=== PATIENT | female | born 1970 | race Hispanic/Latino ===

== ENCOUNTER 2020-02-20 10:57 | Inpatient (IN) | payer OTHER, SELFPAY ==
[~2020-02-20] VITALS: Ht 160 cm; Wt 91.4 kg
[2020-02-20 11:30] LABS: BASOPHILS % (AUTO) 0.1 % (0.0-5.0); HEMATOCRIT 40.6 % (36-48); LYMPHOCYTES % (AUTO) 9.4 % (21.0-51.0); MEAN CORPUSCULAR HEMOGLOBIN 29.9 pg (27.0-33.0); MEAN CORPUSCULAR HGB CONC 32.5 g/dL (32.0-36.0); MEAN CORPUSCULAR VOLUME 91.9 fL (79-99); MONOCYTES % (AUTO) 3.2 % (3.0-13.0); NEUTROPHILS % (AUTO) 86.3 % (40.0-77.0); PLATELET COUNT (AUTO) 246 K/uL (130-400); RED BLOOD CELL COUNT(AUTO) 4.42 MIL/uL (4.00-5.50); RED CELL DISTRIBUTION WIDTH 14.3 % (11.0-15.5); WHITE BLOOD COUNT (AUTO) 9.3 K/uL (4.8-10.8)
[2020-02-20 11:43] LABS: INR 0.89 (0.85-1.15); PARTIAL THROMBOPLASTIN TIME 33.1 SEC (26.3-35.5); PROTHROMBIN TIME 9.7 SEC (9.6-11.6)
[2020-02-20] MEDS ORDERED: ACETAMINOPHEN EXTRA STRENGTH 500 MG TABLET ONE (11:45)
[2020-02-20] MEDS ORDERED: ONDANSETRON HCL 4 MG/2 ML VIAL ONE (11:47)
[2020-02-20 11:55] LABS: CARBON DIOXIDE 31 mmol/L (21-32); CHLORIDE 98 mmol/L (101-111); GLOMERULAR FILTR. RATE CALC 63 mL/min (>60); GLUCOSE,RANDOM 186 mg/dL (70-105); SODIUM SERUM 136 mmol/L (136-145); UREA NITROGEN, BLOOD 12 mg/dL (7-18)
[2020-02-20 12:01] LABS: BILIRUBIN,URINE Small (NEGATIVE); COLOR,URINE Dark Yellow (YELLOW); GLUCOSE, URINE (UA) Negative (NEGATIVE); KETONES,URINE Trace mg/dL (NEGATIVE); LEUKOCYTE ESTERASE ,URINE Trace (NEGATIVE); NITRATE,URINE Negative (NEGATIVE); OCCULT BLOOD,URINE Small (NEGATIVE); PROTEIN,URINE >=1000 mg/dL (NEGATIVE)
[2020-02-20] MEDS ORDERED: AZITHROMYCIN 500MG+NS 250ML 250 ML IV ONE (12:03)
[2020-02-20] MEDS ORDERED: DEXAMETHASONE SOD PHOSPHATE 4 MG/ML 1ML VIAL ONE (12:03)
[2020-02-20] MEDS ORDERED: CEFTRIAXONE SODIUM 1 GM ONE (12:03)
[2020-02-20 12:06] LABS: ALANINE AMINOTRANSFERASE 46 U/L (12-78); ALBUMIN 2.6 g/dL (3.5-5.0); ASPARTATE AMINOTRANSFERASE 60 U/L (10-37); BILIRUBIN,TOTAL 0.4 mg/dL (0.2-1.0); CREATINE KINASE, TOTAL 304 U/L (21-232); MYOGLOBIN 86 ng/mL (10-92); TOTAL PROTEIN, SERUM 7.9 g/dL (6.0-8.3); TROPONIN I < 0.04 ng/mL (0.00-0.06)
[2020-02-20 12:08] LABS: APPEARANCE,URINE SLIGHTLY CLOUDY (CLEAR)
[2020-02-20 12:22] LABS: BACTERIA,URINE Few /HPF (None Seen); MUCUS,URINE Many LPF (None Seen); TRANSITIONAL EPI CELLS,URINE Few /HPF (None Seen)
[2020-02-20 12:29] LABS: RAPID GROUP A STREP NEGATIVE (NEGATIVE)
[2020-02-20 12:49] LABS: ABG HCO3 26.7 mmol/L (21.0-28.0); ABG OXYGEN SATURATION 96.1 % (95.0-99.0); ABG PCO2 47 mmHg (32-45)
[2020-02-20] MEDS: FUROSEMIDE 10 MG/ML 4ML VIAL IV SCH (15:00)
[2020-02-20] MEDS ORDERED: GLUCAGON 1MG KIT 1 MG ML IM PRN (15:00)
[2020-02-20] MEDS ORDERED: HYDRALAZINE HCL 20 MG/ML VIAL IV PRN (15:00)
[2020-02-20] MEDS ORDERED: DOXYCYCLINE 100MG+NS 250ML IV SCH (15:00)
[2020-02-20] MEDS ORDERED: MAG HYDROX/AL HYDROX/SIMETH ES 30 ML SUSP UDCUP PO PRN (15:00)
[2020-02-20] MEDS ORDERED: LACTULOSE 20 GM/30 ML UDCUP PO PRN (15:00)
[2020-02-20] MEDS ORDERED: GUAIFENESIN-DM 200/20 MG 10 ML PO PRN (15:00)
[2020-02-20] MEDS: CEFTRIAXONE SODIUM 1 GM IVP SCH (15:00)
[2020-02-20] MEDS ORDERED: ONDANSETRON HCL 4 MG/2 ML VIAL IV PRN (15:00)
[2020-02-20] MEDS ORDERED: ACETAMINOPHEN 325 MG TAB PO PRN (15:00)
[2020-02-20] MEDS ORDERED: ERGOCALCIFEROL (VITAMIN D2) 50,000 UNIT CAPSULE PO ONE (15:00)
[2020-02-20] MEDS ORDERED: DIPHENHYDRAMINE HCL 25 MG CAPSULE PO PRN (15:00)
[2020-02-20] MEDS ORDERED: DEXTROSE 50%-WATER 50 ML DISP.SYRIN IV PRN (15:00)
[2020-02-20] MEDS ORDERED: DiphenhydrAMINE HCL 50 MG/ML VIAL IV PRN (15:00)
[2020-02-20] MEDS ORDERED: NITROGLYCERIN 0.4 MG SL TAB SL PRN (15:00)
[2020-02-20] MEDS: DOXYCYCLINE 100MG+NS 250ML 250 ML IV SCH (16:00)
[2020-02-20 16:42] LABS: CRP QUANTITATIVE 248.9 mg/L (0.00-9.0)
[2020-02-20] MEDS ORDERED: DOXYCYCLINE 100MG+NS 250ML 250 ML IV ONE (17:23)
[2020-02-20] MEDS ORDERED: FUROSEMIDE 10 MG/ML 4ML VIAL ONE (17:24)
[2020-02-20] MEDS ORDERED: METHYLPREDNISOLONE SOD SUCC 125MG/2ML VIAL ONE (18:03)
[2020-02-20 20:00] VITALS: BP 159/61
--- NOTE | 2020-02-20 20:00 | NUR ---
ROUNDS RECEIVED PT ON BIPAP AT 90%. STILL VERY DYSPNEIC WITH RR=40. KEPT HOB ELEVATED. MAINTAINED ON BIPAP. WILL MONITOR CLOSELY. Addendum: 02/20/20 at 2309 by TRAM GANNON RN RN Amended: Links added.
[2020-02-20] MEDS ORDERED: BENZONATATE 100 MG CAPSULE PO ONE (20:05)
[2020-02-20] MEDS ORDERED: FAMOTIDINE/PF 20 MG/2 ML VIAL IV ONE (20:06)
[2020-02-20] MEDS: FAMOTIDINE 20MG TAB 20 MG TAB PO SCH (20:53)
[2020-02-20] MEDS: BENZONATATE 100 MG CAPSULE PO SCH (21:00)
[2020-02-20] MEDS: METHYLPREDNISOLONE SOD SUCC 125MG/2ML VIAL IVP SCH (21:00)
[2020-02-20] MEDS: ACETYLCYSTEINE 600 MG CAPSULE PO SCH (21:00)
[2020-02-20] MEDS: INSULIN HUMULIN R 100 UNIT/ML 3ML SQ SCH (21:00)
--- NOTE | 2020-02-20 21:00 | NUR ---
MEDS SHIFT ASSESSMENT DONE, PLEASE REFER TO CHART. DUE MEDS ADMINISTERED, TOLERATED WELL. DIAPER CHANGED. KEPT WARM AND DRY.WILL MONITOR PT. Addendum: 02/20/20 at 2346 by TRAM GANNON RN RN Amended: Links added.
[2020-02-20] MEDS ORDERED: ERGOCALCIFEROL (VITAMIN D2) 50,000 UNIT CAPSULE ONE (21:37)
--- NOTE | 2020-02-20 22:46 | NUR ---
PAGED CHELSEA MILLER INFORMS HEATER FURNACE THAT PCCU BED IS OPEN AND TO PAGE PRIMARY MD TO ASK TO UPGRADE PT TO PCCU STATUS PT IS NOT TOLERATING BIPAP. PAGED AJ, MEDICAL TECHNOLOGIST MICROBIOLOGY MANAGER PERSONNEL SELECTION FOR HOSPITALIST, VIA ANSWERING SERVICE. AWAITING CALL BACK.
--- NOTE | 2020-02-20 22:52 | NUR ---
CHIEF SCIENTIST CHIEF SCIENTIST AJ CALLED BACK AND REFERRED STATUS OF PT. NEW ORDER GIVEN, PLEASE REFER TO CPOE.
--- NOTE | 2020-02-20 23:35 | NUR ---
LACQUER SHADER MADE AWARE OF ROOM AVAILABILITY IN ROOM 403. CALLED TORI PICKETT TO HELP WITH BIPAP ON TRANSPORT. CALLED REPORT TO SONY YEN. PT MADE AWARE OF PENDING TRANSFER TO FLOOR. AWAITING TRANSPORT TO FLOOR.
[2020-02-20 23:55] VITALS: BP 152/82
--- NOTE | 2020-02-21 | NUR ---
TRANSFER PT TRANSFERRED TO ROOM 403. BEDSIDE REPORT UPDATE GIVEN TO SONY YEN.
--- NOTE | 2020-02-21 02:30 | NUR ---
PT DESATTING PT ON NONREBREATHER MASK 100%. PT STARTED TO DESAT. PLACE PT BACK ON HER BIPAP. WILL REEVAL IN 15 MIN
--- NOTE | 2020-02-21 02:45 | NUR ---
PT'S SATS UP TO 91% ON BIPAP. WILL CONT TO MONITOR PTS STATUS
[2020-02-21 03:52] VITALS: BP 146/81
[2020-02-21] MEDS: DOXYCYCLINE 100MG+NS 250ML 250 ML IV SCH ×2 (04:00→16:00)
[2020-02-21] MEDS: FUROSEMIDE 10 MG/ML 4ML VIAL IV SCH ×2 (04:17→17:54)
[2020-02-21] MEDS: CEFTRIAXONE SODIUM 1 GM IVP SCH ×2 (04:24→16:57)
[2020-02-21 05:52] LABS: BASOPHILS % (AUTO) 0.2 % (0.0-5.0); EOSINOPHILS % (AUTO) 0.2 % (0.0-8.0); HEMATOCRIT 44.8 % (36-48); LYMPHOCYTES % (AUTO) 7.9 % (21.0-51.0); MEAN CORPUSCULAR HEMOGLOBIN 30.3 pg (27.0-33.0); MEAN CORPUSCULAR HGB CONC 32.4 g/dL (32.0-36.0); MEAN CORPUSCULAR VOLUME 93.5 fL (79-99); MONOCYTES % (AUTO) 2.6 % (3.0-13.0); PLATELET COUNT (AUTO) 317 K/uL (130-400); RED BLOOD CELL COUNT(AUTO) 4.79 MIL/uL (4.00-5.50); RED CELL DISTRIBUTION WIDTH 14.6 % (11.0-15.5); WHITE BLOOD COUNT (AUTO) 11.6 K/uL (4.8-10.8)
[2020-02-21 06:05] LABS: ALBUMIN 2.5 g/dL (3.5-5.0); BILIRUBIN,TOTAL 0.3 mg/dL (0.2-1.0); CREATININE 1.1 mg/dL (0.5-1.5); POTASSIUM 4.6 mmol/L (3.5-5.1); TOTAL PROTEIN, SERUM 8.4 g/dL (6.0-8.3)
[2020-02-21 06:25] LABS: CRP QUANTITATIVE 282.5 mg/L (0.00-9.0)
[2020-02-21] MEDS: INSULIN HUMULIN R 100 UNIT/ML 3ML SQ SCH ×4 (06:41→21:12)
[2020-02-21 07:30] VITALS: BP 141/83
[2020-02-21] MEDS ORDERED: REMDESIVIR (INVESTIGATIONAL) 200 MG/250 ML NS IV SCH (08:30)
[2020-02-21] MEDS: METHYLPREDNISOLONE SOD SUCC 125MG/2ML VIAL IVP SCH ×3 (08:51→21:10)
[2020-02-21] MEDS: ACETYLCYSTEINE 600 MG CAPSULE PO SCH ×2 (08:51→21:09)
[2020-02-21] MEDS: ASCORBIC ACID 500 MG TAB PO SCH (08:51)
[2020-02-21] MEDS: ZINC SULFATE 220 CAPSULE PO SCH (08:51)
[2020-02-21] MEDS: BENZONATATE 100 MG CAPSULE PO SCH ×3 (08:51→21:10)
[2020-02-21] MEDS ORDERED: ENOXAPARIN SODIUM 1 MG/KG SQ SCH (09:00)
[2020-02-21] MEDS: FAMOTIDINE 20MG TAB 20 MG TAB PO SCH ×2 (09:00→21:00)
[2020-02-21] MEDS ORDERED: ENOXAPARIN SODIUM 40 MG/0.4 ML SYRINGE SQ SCH (09:00)
[2020-02-21] MEDS ORDERED: COLCHICINE 0.6 MG TABLET PO SCH (09:30)
[2020-02-21] MEDS ORDERED: SODIUM CHLORIDE 0.9% 250 ML IV ONE (10:00)
[2020-02-21] MEDS: ENOXAPARIN SODIUM 100 MG/1 ML SQ SCH ×2 (10:04→21:16)
[2020-02-21] MEDS: COLCHICINE 0.6 MG TABLET PO SCH (10:30)
[2020-02-21 11:47] VITALS: BP 160/85
[2020-02-21] MEDS ORDERED: REMDESIVIR (INVESTIGATIONAL) 100 MG in SODIUM CHLORIDE 0.9% 250 ML IV SCH (15:00)
[2020-02-21 15:30] VITALS: BP 162/83
[2020-02-21 19:40] VITALS: BP 147/89
[2020-02-21 23:53] VITALS: BP 148/71
[2020-02-22] MEDS: CEFTRIAXONE SODIUM 1 GM IVP SCH ×2 (03:04→18:25)
[2020-02-22 03:44] VITALS: BP 133/79
[2020-02-22 04:44] LABS: BASOPHILS % (AUTO) 0.2 % (0.0-5.0); EOSINOPHILS % (AUTO) 0.1 % (0.0-8.0); HEMATOCRIT 43.5 % (36-48); LYMPHOCYTES % (AUTO) 6.4 % (21.0-51.0); MEAN CORPUSCULAR HEMOGLOBIN 29.5 pg (27.0-33.0); MEAN CORPUSCULAR VOLUME 92.4 fL (79-99); MONOCYTES % (AUTO) 3.4 % (3.0-13.0); NEUTROPHILS % (AUTO) 88.8 % (40.0-77.0); PLATELET COUNT (AUTO) 354 K/uL (130-400); RED BLOOD CELL COUNT(AUTO) 4.71 MIL/uL (4.00-5.50); RED CELL DISTRIBUTION WIDTH 14.3 % (11.0-15.5); WHITE BLOOD COUNT (AUTO) 16.2 K/uL (4.8-10.8)
[2020-02-22 05:16] LABS: ALBUMIN 2.3 g/dL (3.5-5.0); BILIRUBIN,TOTAL 0.3 mg/dL (0.2-1.0); CREATININE 1.1 mg/dL (0.5-1.5); CRP QUANTITATIVE 141.3 mg/L (0.00-9.0); POTASSIUM 3.8 mmol/L (3.5-5.1)
[2020-02-22] MEDS ORDERED: FAMOTIDINE/PF 20 MG/2 ML VIAL IV ONE (07:20)
[2020-02-22 08:00] VITALS: BP 157/77
[2020-02-22] MEDS: ASCORBIC ACID 500 MG TAB PO SCH (08:10)
[2020-02-22] MEDS: METHYLPREDNISOLONE SOD SUCC 125MG/2ML VIAL IVP SCH ×3 (08:10→20:40)
[2020-02-22] MEDS: ZINC SULFATE 220 CAPSULE PO SCH (08:11)
[2020-02-22] MEDS: ACETYLCYSTEINE 600 MG CAPSULE PO SCH ×2 (08:11→20:40)
[2020-02-22] MEDS: BENZONATATE 100 MG CAPSULE PO SCH ×3 (08:11→20:41)
[2020-02-22] MEDS: DOXYCYCLINE 100MG+NS 250ML 250 ML IV SCH ×2 (09:00→20:40)
[2020-02-22] MEDS: REMDESIVIR (INVESTIGATIONAL) 100 MG/250ML NS IV SCH (09:00)
[2020-02-22] MEDS: FAMOTIDINE 20MG TAB 20 MG TAB PO SCH ×2 (09:00→20:41)
[2020-02-22] MEDS: ENOXAPARIN SODIUM 100 MG/1 ML SQ SCH ×2 (11:20→20:41)
[2020-02-22] MEDS: COLCHICINE 0.6 MG TABLET PO SCH (11:20)
[2020-02-22 11:30] VITALS: BP 186/86
--- NOTE | 2020-02-22 15:27 | NUR ---
INITIAL SW spoke to patient's spouse, Austyn Flood, [phone]. Patient has no home services or or DME. 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 Patient is able to complete ADL's independently and drives. PCP is MD at [facility]. Pharmacy is [facility]. DCP is home. Patient has no insurance or benefits. She is a [place] citizen and is presently working. Patient's spouse educated on [employer] $4 medication program and [employer] $5 medication program. Patient is being assisted by [employer] for financial matters. Addendum: 02/22/20 at 1530 by SHOAIB VELÁZQUEZ Amended: Links added.
[2020-02-22 15:30] VITALS: BP 180/79
[2020-02-22] MEDS: INSULIN HUMULIN R 100 UNIT/ML 3ML SQ SCH ×2 (16:30→20:42)
[2020-02-22 20:26] VITALS: BP 152/87
[2020-02-22 23:39] VITALS: BP 142/78
[2020-02-23 04:10] VITALS: BP 140/75
[2020-02-23] MEDS: CEFTRIAXONE SODIUM 1 GM IVP SCH ×2 (04:21→13:08)
[2020-02-23 05:48] LABS: BASOPHILS % (AUTO) 0.2 % (0.0-5.0); EOSINOPHILS % (AUTO) 0.2 % (0.0-8.0); HEMATOCRIT 43.5 % (36-48); LYMPHOCYTES % (AUTO) 5.5 % (21.0-51.0); MEAN CORPUSCULAR HEMOGLOBIN 30.1 pg (27.0-33.0); MEAN CORPUSCULAR VOLUME 94.2 fL (79-99); MONOCYTES % (AUTO) 3.8 % (3.0-13.0); NEUTROPHILS % (AUTO) 87.8 % (40.0-77.0); PLATELET COUNT (AUTO) 401 K/uL (130-400); RED BLOOD CELL COUNT(AUTO) 4.62 MIL/uL (4.00-5.50); RED CELL DISTRIBUTION WIDTH 14.2 % (11.0-15.5); WHITE BLOOD COUNT (AUTO) 16.8 K/uL (4.8-10.8)
[2020-02-23 06:08] LABS: ALBUMIN 2.3 g/dL (3.5-5.0); BILIRUBIN,TOTAL 0.4 mg/dL (0.2-1.0); CRP QUANTITATIVE 58.5 mg/L (0.00-9.0); POTASSIUM 3.4 mmol/L (3.5-5.1); TOTAL PROTEIN, SERUM 7.3 g/dL (6.0-8.3)
[2020-02-23] MEDS: INSULIN HUMULIN R 100 UNIT/ML 3ML SQ SCH ×4 (06:53→20:45)
[2020-02-23 08:00] VITALS: BP 167/84
--- NOTE | 2020-02-23 08:05 | NUR ---
ASSESSMENT PT IS RESTING IN BED PRONE POSITION. AAOX3 DENIES CP DENIES SOB WHILE AT REST AT THIS TIME, CURRENTLY ON HIGH FLOW O2. AM MEDS GIVEN, TOLERATED WELL. NO VISIBLE SIGNS OF DISTRESS NOTED AT THIS TIME. CALL LIGHT WITHIN REACH.
[2020-02-23] MEDS: FAMOTIDINE 20MG TAB 20 MG TAB PO SCH ×2 (08:47→20:53)
[2020-02-23] MEDS: COLCHICINE 0.6 MG TABLET PO SCH (08:47)
[2020-02-23] MEDS: ASCORBIC ACID 500 MG TAB PO SCH (08:47)
[2020-02-23] MEDS: ZINC SULFATE 220 CAPSULE PO SCH (08:47)
[2020-02-23] MEDS: BENZONATATE 100 MG CAPSULE PO SCH ×3 (08:47→20:47)
[2020-02-23] MEDS: ACETYLCYSTEINE 600 MG CAPSULE PO SCH ×2 (08:47→20:47)
[2020-02-23] MEDS: METHYLPREDNISOLONE SOD SUCC 125MG/2ML VIAL IVP SCH ×3 (08:47→20:48)
[2020-02-23] MEDS: ENOXAPARIN SODIUM 100 MG/1 ML SQ SCH ×2 (08:47→20:49)
[2020-02-23] MEDS: DOXYCYCLINE HYCLATE 100 MG TABLET PO SCH ×2 (09:18→20:47)
[2020-02-23] MEDS: REMDESIVIR (INVESTIGATIONAL) 100 MG/250ML NS IV SCH (09:18)
[2020-02-23 12:00] VITALS: BP 148/76
[2020-02-23] MEDS ORDERED: COMPOUND IV REFRIGERATED 1 EACH IVSOLN MISC PRN (12:00)
--- NOTE | 2020-02-23 12:00 | NUR ---
DR Ruthie GARCIA ROUNDED ORDERS RECEIVED
[2020-02-23 16:00] VITALS: BP 165/75
[2020-02-23 20:50] VITALS: BP 149/72
--- NOTE | 2020-02-23 23:17 | NUR ---
PLASMA STARTED AT THIS TIME. PLASMA VERIFIED AT BEDSIDE WITH SONY ECHEVERRIA.
--- NOTE | 2020-02-23 23:35 | NUR ---
SATURATIONS DROPPING TO 84-85% HIGH FLOW 15 LPM, 100% O2. RT PAGED. RT INCREASED O2 TO 16 LPM. REPORTS THAT IS THE HIGHEST IT WILL GO. PT CURRENTLY IN THE PRONE POSITION. SAT INCREASED TO 94%. WILL MAINTAIN PT IN THE PRONE POSITION AND CONTINUE TO MONITOR CLOSELY.
[2020-02-24 00:04] VITALS: BP 156/90
[2020-02-24] MEDS: CEFTRIAXONE SODIUM 1 GM IVP SCH ×2 (03:06→13:41)
[2020-02-24 03:58] VITALS: BP 152/83
[2020-02-24 05:00] LABS: BASOPHILS % (AUTO) 0.3 % (0.0-5.0); EOSINOPHILS % (AUTO) 0.7 % (0.0-8.0); HEMATOCRIT 38.7 % (36-48); LYMPHOCYTES % (AUTO) 6.1 % (21.0-51.0); MEAN CORPUSCULAR HEMOGLOBIN 29.7 pg (27.0-33.0); MEAN CORPUSCULAR HGB CONC 32.3 g/dL (32.0-36.0); MEAN CORPUSCULAR VOLUME 91.9 fL (79-99); MONOCYTES % (AUTO) 3.8 % (3.0-13.0); NEUTROPHILS % (AUTO) 85.4 % (40.0-77.0); PLATELET COUNT (AUTO) 385 K/uL (130-400); RED BLOOD CELL COUNT(AUTO) 4.21 MIL/uL (4.00-5.50); RED CELL DISTRIBUTION WIDTH 13.9 % (11.0-15.5); WHITE BLOOD COUNT (AUTO) 14.8 K/uL (4.8-10.8)
[2020-02-24 05:28] LABS: ALBUMIN 2.4 g/dL (3.5-5.0); BILIRUBIN,TOTAL 0.5 mg/dL (0.2-1.0); CREATININE 0.9 mg/dL (0.5-1.5); CRP QUANTITATIVE 30.3 mg/L (0.00-9.0); POTASSIUM 3.6 mmol/L (3.5-5.1); TOTAL PROTEIN, SERUM 7.1 g/dL (6.0-8.3)
[2020-02-24] MEDS: INSULIN HUMULIN R 100 UNIT/ML 3ML SQ SCH ×4 (07:10→20:29)
[2020-02-24 08:00] VITALS: BP 138/87
[2020-02-24] MEDS: DOXYCYCLINE HYCLATE 100 MG TABLET PO SCH ×2 (08:18→19:59)
[2020-02-24] MEDS: BENZONATATE 100 MG CAPSULE PO SCH ×3 (08:18→19:59)
[2020-02-24] MEDS: ASCORBIC ACID 500 MG TAB PO SCH (08:18)
[2020-02-24] MEDS: FAMOTIDINE 20MG TAB 20 MG TAB PO SCH ×2 (08:18→19:59)
[2020-02-24] MEDS: ACETYLCYSTEINE 600 MG CAPSULE PO SCH ×2 (08:18→19:59)
[2020-02-24] MEDS: REMDESIVIR (INVESTIGATIONAL) 100 MG/250ML NS IV SCH (08:18)
[2020-02-24] MEDS: METHYLPREDNISOLONE SOD SUCC 125MG/2ML VIAL IVP SCH ×3 (08:18→19:59)
[2020-02-24] MEDS: ZINC SULFATE 220 CAPSULE PO SCH (08:18)
[2020-02-24] MEDS: ENOXAPARIN SODIUM 100 MG/1 ML SQ SCH ×2 (08:18→20:01)
--- NOTE | 2020-02-24 08:30 | NUR ---
ASSESSMENT PT IS AAOX3. DENIES CP DENIES SOB AT REST, DENIES NV. LAYING PRONE INN BED, BREATHING PATTERN IS EVEN AND UNLABORED AT THIS TIME. NO VISIBLE SIGNS OF DISTRESS NOTED. STATES SHE FEELS BETTER TODAY THAN YESTERDAY AFTER RECEIVING CONV PLASMA. CURRENTLY ON O2 VIA HIGH FLOW. CALL LIGHT WITHIN REACH.
[2020-02-24] MEDS ORDERED: INSULIN GLARGINE 100 UNITS/ML 10 ML VIAL SQ ONE (09:00)
[2020-02-24] MEDS: COLCHICINE 0.6 MG TABLET PO SCH (09:30)
--- NOTE | 2020-02-24 11:30 | NUR ---
FAMILY NOTIFICATION AND UPDATE SPOKE TO NAHUM CUNHA. GIVEN PT STATUS UPDATE AND PLAN OF CARE . ALL QUESTIONS ANSWERED. GIVEN PASSWORD FOR CALLS I ALSO SPOKE TO HIM ON 02/23/20
--- NOTE | 2020-02-24 12:30 | NUR ---
STATUS REMAINS PRONE NO COMPLAINTS AT THIS TIME. CALL LIGHT WITHIN REACH. REMAINS ON HIGH FLOW.
[2020-02-24 16:00] VITALS: BP 114/57
[2020-02-24] MEDS: GUAIFENESIN-CODEINE 5 ML SYRUP PO PRN (19:59)
[2020-02-24 20:44] VITALS: BP 146/75
[2020-02-24 23:42] VITALS: BP 167/86
[2020-02-25] MEDS ORDERED: SODIUM CHLORIDE 0.9% 250 ML IV ONE (03:15)
[2020-02-25] MEDS: CEFTRIAXONE SODIUM 1 GM IVP SCH ×2 (03:39→14:34)
[2020-02-25 03:49] VITALS: BP 156/72
[2020-02-25] MEDS: INSULIN HUMULIN R 100 UNIT/ML 3ML SQ SCH ×4 (06:34→20:33)
[2020-02-25 06:58] LABS: BASOPHILS % (AUTO) 0.4 % (0.0-5.0); HEMATOCRIT 42.5 % (36-48); LYMPHOCYTES % (AUTO) 6.6 % (21.0-51.0); MEAN CORPUSCULAR HEMOGLOBIN 29.7 pg (27.0-33.0); MEAN CORPUSCULAR VOLUME 92.8 fL (79-99); MONOCYTES % (AUTO) 3.9 % (3.0-13.0); NEUTROPHILS % (AUTO) 83.3 % (40.0-77.0); PLATELET COUNT (AUTO) 449 K/uL (130-400); RED BLOOD CELL COUNT(AUTO) 4.58 MIL/uL (4.00-5.50); RED CELL DISTRIBUTION WIDTH 13.5 % (11.0-15.5); WHITE BLOOD COUNT (AUTO) 15.2 K/uL (4.8-10.8)
[2020-02-25 07:04] LABS: ALBUMIN 2.5 g/dL (3.5-5.0); BILIRUBIN,TOTAL 0.7 mg/dL (0.2-1.0); CREATININE 0.9 mg/dL (0.5-1.5); CRP QUANTITATIVE 19.1 mg/L (0.00-9.0); POTASSIUM 3.5 mmol/L (3.5-5.1); TOTAL PROTEIN, SERUM 7.1 g/dL (6.0-8.3)
[2020-02-25 08:00] VITALS: BP 154/84
[2020-02-25] MEDS: ZINC SULFATE 220 CAPSULE PO SCH (09:04)
[2020-02-25] MEDS: ACETYLCYSTEINE 600 MG CAPSULE PO SCH ×2 (09:04→20:21)
[2020-02-25] MEDS: METHYLPREDNISOLONE SOD SUCC 125MG/2ML VIAL IVP SCH ×3 (09:04→20:21)
[2020-02-25] MEDS: DOXYCYCLINE HYCLATE 100 MG TABLET PO SCH ×2 (09:04→20:21)
[2020-02-25] MEDS: BENZONATATE 100 MG CAPSULE PO SCH ×3 (09:04→20:21)
[2020-02-25] MEDS: ASCORBIC ACID 500 MG TAB PO SCH (09:04)
[2020-02-25] MEDS: FAMOTIDINE 20MG TAB 20 MG TAB PO SCH ×2 (09:04→20:21)
[2020-02-25] MEDS: COLCHICINE 0.6 MG TABLET PO SCH (09:04)
[2020-02-25] MEDS: ENOXAPARIN SODIUM 100 MG/1 ML SQ SCH ×2 (09:05→20:22)
[2020-02-25] MEDS: REMDESIVIR (INVESTIGATIONAL) 100 MG/250ML NS IV SCH (09:33)
[2020-02-25 12:00] VITALS: BP 150/83
[2020-02-25 16:00] VITALS: BP 154/82
[2020-02-25 20:00] VITALS: BP 139/78
[2020-02-25] MEDS: ZOLPIDEM TARTRATE 5 MG TAB PO PRN (20:21)
[2020-02-26] VITALS (7 sets, daily range): BP systolic 130–161; BP diastolic 74–86
[2020-02-26] MEDS: CEFTRIAXONE SODIUM 1 GM IVP SCH ×2 (03:29→14:25)
[2020-02-26 04:05] LABS: BASOPHILS % (AUTO) 0.3 % (0.0-5.0); HEMATOCRIT 40.8 % (36-48); LYMPHOCYTES % (AUTO) 6.8 % (21.0-51.0); MEAN CORPUSCULAR HEMOGLOBIN 29.9 pg (27.0-33.0); MEAN CORPUSCULAR HGB CONC 32.8 g/dL (32.0-36.0); MEAN CORPUSCULAR VOLUME 91.1 fL (79-99); MONOCYTES % (AUTO) 3.1 % (3.0-13.0); NEUTROPHILS % (AUTO) 82.6 % (40.0-77.0); PLATELET COUNT (AUTO) 445 K/uL (130-400); RED BLOOD CELL COUNT(AUTO) 4.48 MIL/uL (4.00-5.50); RED CELL DISTRIBUTION WIDTH 13.2 % (11.0-15.5); WHITE BLOOD COUNT (AUTO) 13.7 K/uL (4.8-10.8)
[2020-02-26 04:29] LABS: ALBUMIN 2.4 g/dL (3.5-5.0); BILIRUBIN,TOTAL 0.7 mg/dL (0.2-1.0); CREATININE 0.8 mg/dL (0.5-1.5); POTASSIUM 3.4 mmol/L (3.5-5.1); TOTAL PROTEIN, SERUM 6.5 g/dL (6.0-8.3)
[2020-02-26] MEDS: INSULIN HUMULIN R 100 UNIT/ML 3ML SQ SCH ×4 (06:11→20:22)
[2020-02-26] MEDS: COLCHICINE 0.6 MG TABLET PO SCH (08:35)
[2020-02-26] MEDS: METHYLPREDNISOLONE SOD SUCC 125MG/2ML VIAL IVP SCH ×3 (08:35→20:23)
[2020-02-26] MEDS: DOXYCYCLINE HYCLATE 100 MG TABLET PO SCH ×2 (08:35→20:23)
[2020-02-26] MEDS: FAMOTIDINE 20MG TAB 20 MG TAB PO SCH ×2 (08:35→20:23)
[2020-02-26] MEDS: ZINC SULFATE 220 CAPSULE PO SCH (08:35)
[2020-02-26] MEDS: BENZONATATE 100 MG CAPSULE PO SCH ×3 (08:35→20:23)
[2020-02-26] MEDS: ASCORBIC ACID 500 MG TAB PO SCH (08:35)
[2020-02-26] MEDS: ENOXAPARIN SODIUM 100 MG/1 ML SQ SCH (08:36)
[2020-02-26] MEDS: ACETYLCYSTEINE 600 MG CAPSULE PO SCH ×2 (08:38→20:23)
--- NOTE | 2020-02-26 12:22 | NUR ---
Family notification Spoke to Austyn Flood to give him an update of pt's condition also informed him pt was pending PT eval. All questions answered and concerns addressed. He was very appreciative of call
[2020-02-26] MEDS: ENOXAPARIN SODIUM 60 MG/0.6 ML SQ SCH (17:55)
[2020-02-26] MEDS: GUAIFENESIN-CODEINE 5 ML SYRUP PO PRN (20:23)
[2020-02-27] MEDS: CEFTRIAXONE SODIUM 1 GM IVP SCH (03:01)
[2020-02-27 04:00] VITALS: BP 141/82
[2020-02-27 04:34] LABS: BASOPHILS % (AUTO) 0.4 % (0.0-5.0); HEMATOCRIT 40.2 % (36-48); LYMPHOCYTES % (AUTO) 5.3 % (21.0-51.0); MEAN CORPUSCULAR HGB CONC 33.1 g/dL (32.0-36.0); MEAN CORPUSCULAR VOLUME 90.7 fL (79-99); MONOCYTES % (AUTO) 3.1 % (3.0-13.0); NEUTROPHILS % (AUTO) 86.1 % (40.0-77.0); PLATELET COUNT (AUTO) 444 K/uL (130-400); RED BLOOD CELL COUNT(AUTO) 4.43 MIL/uL (4.00-5.50); WHITE BLOOD COUNT (AUTO) 14.3 K/uL (4.8-10.8)
[2020-02-27 04:50] LABS: CREATININE 0.9 mg/dL (0.5-1.5); CRP QUANTITATIVE 16.5 mg/L (0.00-9.0); POTASSIUM 4.2 mmol/L (3.5-5.1)
[2020-02-27] MEDS: INSULIN HUMULIN R 100 UNIT/ML 3ML SQ SCH ×4 (05:33→21:09)
[2020-02-27 08:26] VITALS: BP 146/75
[2020-02-27] MEDS: BENZONATATE 100 MG CAPSULE PO SCH ×3 (08:43→21:09)
[2020-02-27] MEDS: ASCORBIC ACID 500 MG TAB PO SCH (08:44)
[2020-02-27] MEDS: FAMOTIDINE 20MG TAB 20 MG TAB PO SCH ×2 (08:44→21:09)
[2020-02-27] MEDS: DOXYCYCLINE HYCLATE 100 MG TABLET PO SCH ×2 (08:44→21:09)
[2020-02-27] MEDS: ZINC SULFATE 220 CAPSULE PO SCH (08:44)
[2020-02-27] MEDS: ACETYLCYSTEINE 600 MG CAPSULE PO SCH ×2 (08:44→21:08)
[2020-02-27] MEDS: METHYLPREDNISOLONE SOD SUCC 125MG/2ML VIAL IVP SCH ×3 (08:44→21:09)
[2020-02-27] MEDS: ENOXAPARIN SODIUM 60 MG/0.6 ML SQ SCH (08:45)
[2020-02-27] MEDS ORDERED: INSULIN GLARGINE 100 UNITS/ML 10 ML VIAL SQ SCH (09:00)
[2020-02-27 12:39] VITALS: BP 128/69
--- NOTE | 2020-02-27 12:46 | NUR ---
Family notification Spoke to Austyn Flood to update him on pt's condition. All questions were answered and all concerns addressed. He was very appreciative of call
[2020-02-27] MEDS ORDERED: INSULIN GLARGINE 100 UNITS/ML 10 ML VIAL SQ ONE (14:00)
[2020-02-27 15:47] VITALS: BP 115/75
--- NOTE | 2020-02-27 16:51 | NUR ---
Nutrition Note: RD consulted for education on diabetic diet. Unable to reach patient and in isolation. Intake is 75-100% of meals with good tolerance. alb 2.4, LBM 02/25. Recommend: continue with 75gm CCD, add no concentrated sweets to diet glucerna at lunch Lab draw of HgA1C Addendum: 02/27/20 at [address] Amended: Links added.
--- NOTE | 2020-02-27 17:06 | NUR ---
Nutrition Education: Patient unable to answer phone. Provided T2DM education material with nurse with contact information.
[2020-02-27 20:34] VITALS: BP 136/80
[2020-02-28] VITALS: BP 144/71
[2020-02-28] MEDS: ZOLPIDEM TARTRATE 5 MG TAB PO PRN ×2 (02:22→23:56)
[2020-02-28 03:42] VITALS: BP 133/74
[2020-02-28] MEDS: INSULIN HUMULIN R 100 UNIT/ML 3ML SQ SCH ×4 (06:19→21:27)
[2020-02-28 07:19] VITALS: BP 103/59
[2020-02-28 08:00] LABS: BASOPHILS % (AUTO) 0.4 % (0.0-5.0); HEMATOCRIT 38.6 % (36-48); LYMPHOCYTES % (AUTO) 4.7 % (21.0-51.0); MEAN CORPUSCULAR HEMOGLOBIN 29.9 pg (27.0-33.0); MEAN CORPUSCULAR HGB CONC 32.6 g/dL (32.0-36.0); MEAN CORPUSCULAR VOLUME 91.5 fL (79-99); MONOCYTES % (AUTO) 2.4 % (3.0-13.0); NEUTROPHILS % (AUTO) 87.2 % (40.0-77.0); PLATELET COUNT (AUTO) 411 K/uL (130-400); RED BLOOD CELL COUNT(AUTO) 4.22 MIL/uL (4.00-5.50); RED CELL DISTRIBUTION WIDTH 13.2 % (11.0-15.5)
[2020-02-28] MEDS: ASCORBIC ACID 500 MG TAB PO SCH (08:20)
[2020-02-28] MEDS: ACETYLCYSTEINE 600 MG CAPSULE PO SCH ×2 (08:21→21:23)
[2020-02-28] MEDS: FAMOTIDINE 20MG TAB 20 MG TAB PO SCH ×2 (08:21→21:23)
[2020-02-28] MEDS: METHYLPREDNISOLONE SOD SUCC 125MG/2ML VIAL IVP SCH ×3 (08:21→21:24)
[2020-02-28] MEDS: DOXYCYCLINE HYCLATE 100 MG TABLET PO SCH ×2 (08:21→21:23)
[2020-02-28] MEDS: ZINC SULFATE 220 CAPSULE PO SCH (08:21)
[2020-02-28] MEDS: ENOXAPARIN SODIUM 60 MG/0.6 ML SQ SCH (08:22)
[2020-02-28 08:52] LABS: CREATININE 0.9 mg/dL (0.5-1.5); POTASSIUM 4.7 mmol/L (3.5-5.1)
[2020-02-28] MEDS: BENZONATATE 100 MG CAPSULE PO SCH ×3 (08:55→21:23)
[2020-02-28] MEDS ORDERED: INSULIN GLARGINE 100 UNITS/ML 10 ML VIAL SQ SCH (10:30)
[2020-02-28] MEDS: ACETAMINOPHEN 325 MG TAB PO PRN ×2 (10:45→23:57)
[2020-02-28 11:34] VITALS: BP 107/67
[2020-02-28] MEDS ORDERED: INSULIN GLARGINE 100 UNITS/ML 10 ML VIAL SQ ONE (13:45)
[2020-02-28 16:30] VITALS: BP 116/64
[2020-02-28 20:00] VITALS: BP 141/85
[2020-02-29] VITALS: BP 131/74
[2020-02-29 04:00] VITALS: BP 113/72
[2020-02-29] MEDS: INSULIN HUMULIN R 100 UNIT/ML 3ML SQ SCH ×4 (06:40→21:12)
--- NOTE | 2020-02-29 06:45 | NUR ---
PATIENT COMPLIANT, ON PRONE POSITION THROUGHOUT SHIFT. O2 SATS DOWN TO 84%, BUT INCREASE UP TO 92%. WILL CONTINUE TO MONITOR.
[2020-02-29 07:38] LABS: BASOPHILS % (AUTO) 0.2 % (0.0-5.0); HEMATOCRIT 38.7 % (36-48); LYMPHOCYTES % (AUTO) 3.5 % (21.0-51.0); MEAN CORPUSCULAR HEMOGLOBIN 29.9 pg (27.0-33.0); MEAN CORPUSCULAR HGB CONC 32.8 g/dL (32.0-36.0); MEAN CORPUSCULAR VOLUME 91.1 fL (79-99); MONOCYTES % (AUTO) 1.6 % (3.0-13.0); NEUTROPHILS % (AUTO) 90.3 % (40.0-77.0); PLATELET COUNT (AUTO) 412 K/uL (130-400); RED BLOOD CELL COUNT(AUTO) 4.25 MIL/uL (4.00-5.50); RED CELL DISTRIBUTION WIDTH 13.1 % (11.0-15.5); WHITE BLOOD COUNT (AUTO) 13.1 K/uL (4.8-10.8)
[2020-02-29 08:09] LABS: CARBON DIOXIDE 32 mmol/L (21-32); CHLORIDE 100 mmol/L (101-111); CREATININE 0.8 mg/dL (0.5-1.5); GLOMERULAR FILTR. RATE CALC 81 mL/min (>60); GLUCOSE,RANDOM 327 mg/dL (70-105); LACTATE DEHYDROGENASE 495 U/L (81-234); POTASSIUM 4.8 mmol/L (3.5-5.1); SODIUM SERUM 134 mmol/L (136-145); UREA NITROGEN, BLOOD 26 mg/dL (7-18)
[2020-02-29] MEDS: ZINC SULFATE 220 CAPSULE PO SCH (08:09)
[2020-02-29] MEDS: FAMOTIDINE 20MG TAB 20 MG TAB PO SCH ×2 (08:09→20:21)
[2020-02-29] MEDS: METHYLPREDNISOLONE SOD SUCC 125MG/2ML VIAL IVP SCH ×3 (08:09→20:22)
[2020-02-29] MEDS: DOXYCYCLINE HYCLATE 100 MG TABLET PO SCH ×2 (08:09→20:21)
[2020-02-29] MEDS: ACETYLCYSTEINE 600 MG CAPSULE PO SCH ×2 (08:09→20:21)
[2020-02-29] MEDS: ENOXAPARIN SODIUM 60 MG/0.6 ML SQ SCH (08:09)
[2020-02-29] MEDS: ASCORBIC ACID 500 MG TAB PO SCH (08:09)
[2020-02-29] MEDS: BENZONATATE 100 MG CAPSULE PO SCH ×3 (08:13→20:21)
[2020-02-29 08:21] VITALS: BP 141/86
[2020-02-29 10:51] VITALS: BP 136/82
--- NOTE | 2020-02-29 11:18 | NUR ---
PATIENT ON PRONE POSITION , 02 SAT AT 88 TO 90 %. CONT ON OXYGEN
--- NOTE | 2020-02-29 13:05 | NUR ---
NOTIFIED TIMBO AND DAUGHTER ABIGAIL OF PATIENT STATUS AND PLAN FOR TRANSFER TO CRITICAL CARE UNIT . NOTIFIED [facility] [place] [place], AND FAXED ORDER TO ASSISTANT [employer] PUBLIC DEFENDER
[2020-02-29 13:52] LABS: ABG BASE EXCESS 1.3 mmol/L (-2.0-3.0); ABG HCO3 26.2 mmol/L (21.0-28.0); ABG PCO2 43 mmHg (32-45)
[2020-02-29] MEDS ORDERED: COLCHICINE 0.6 MG TABLET PO SCH (15:45)
[2020-02-29 17:05] VITALS: BP 125/72
[2020-02-29] MEDS: CEFEPIME HCL 2 GM VIAL IVP SCH (17:15)
[2020-02-29] MEDS: FUROSEMIDE 10 MG/ML 2ML VIAL IV SCH (17:17)
--- NOTE | 2020-02-29 18:00 | NUR ---
PATIENT CONT ON OXYGEN HIGH FLOW .O2 SAT AT 89 TO 93%. PATIENT CALM ,STATES FEELS A LITTLE BETTER . WILL CONT TO MONITOR
[2020-02-29] MEDS: COLCHICINE 0.6 MG TABLET PO SCH (20:22)
[2020-02-29] MEDS: INSULIN GLARGINE 100 UNITS/ML 10 ML VIAL SQ SCH (21:11)
[2020-02-29] MEDS: ZOLPIDEM TARTRATE 5 MG TAB PO PRN (21:25)
[2020-02-29 21:51] VITALS: BP 121/78
[2020-03-01] VITALS (7 sets, daily range): BP systolic 115–159; BP diastolic 59–96
[2020-03-01] MEDS: CEFEPIME HCL 2 GM VIAL IVP SCH ×2 (04:38→14:14)
[2020-03-01] MEDS: INSULIN HUMULIN R 100 UNIT/ML 3ML SQ SCH ×4 (06:58→20:42)
--- NOTE | 2020-03-01 07:00 | NUR ---
TONIGHT PATIENT APPEARED MORE COMFORTABLE THROUGHOUT SHIFT. 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
[2020-03-01 07:46] LABS: BASOPHILS % (AUTO) 0.2 % (0.0-5.0); HEMATOCRIT 41.2 % (36-48); LYMPHOCYTES % (AUTO) 3.8 % (21.0-51.0); MEAN CORPUSCULAR HEMOGLOBIN 30.4 pg (27.0-33.0); MEAN CORPUSCULAR HGB CONC 33.3 g/dL (32.0-36.0); MEAN CORPUSCULAR VOLUME 91.4 fL (79-99); MONOCYTES % (AUTO) 2.8 % (3.0-13.0); NEUTROPHILS % (AUTO) 87.7 % (40.0-77.0); PLATELET COUNT (AUTO) 430 K/uL (130-400); RED BLOOD CELL COUNT(AUTO) 4.51 MIL/uL (4.00-5.50); RED CELL DISTRIBUTION WIDTH 13.1 % (11.0-15.5); WHITE BLOOD COUNT (AUTO) 14.1 K/uL (4.8-10.8)
[2020-03-01] MEDS: METHYLPREDNISOLONE SOD SUCC 125MG/2ML VIAL IVP SCH ×3 (08:25→20:38)
[2020-03-01] MEDS: DOXYCYCLINE HYCLATE 100 MG TABLET PO SCH ×2 (08:26→20:39)
[2020-03-01] MEDS: ZINC SULFATE 220 CAPSULE PO SCH (08:26)
[2020-03-01] MEDS: FAMOTIDINE 20MG TAB 20 MG TAB PO SCH ×2 (08:26→20:39)
[2020-03-01] MEDS: COLCHICINE 0.6 MG TABLET PO SCH ×2 (08:26→20:39)
[2020-03-01] MEDS: ASCORBIC ACID 500 MG TAB PO SCH (08:26)
[2020-03-01] MEDS: ENOXAPARIN SODIUM 60 MG/0.6 ML SQ SCH (08:26)
[2020-03-01] MEDS: BENZONATATE 100 MG CAPSULE PO SCH ×3 (08:26→20:39)
[2020-03-01] MEDS: ACETYLCYSTEINE 600 MG CAPSULE PO SCH ×2 (08:27→20:39)
[2020-03-01 08:45] LABS: CARBON DIOXIDE 32 mmol/L (21-32); CHLORIDE 95 mmol/L (101-111); GLOMERULAR FILTR. RATE CALC 63 mL/min (>60); GLUCOSE,RANDOM 344 mg/dL (70-105); LACTATE DEHYDROGENASE 533 U/L (81-234); POTASSIUM 5.6 mmol/L (3.5-5.1); SODIUM SERUM 134 mmol/L (136-145); UREA NITROGEN, BLOOD 34 mg/dL (7-18)
[2020-03-01] MEDS ORDERED: SODIUM POLYSTYRENE SULFONATE 15 GM/60 ML ML PO SCH (09:00)
[2020-03-01] MEDS: FUROSEMIDE 10 MG/ML 2ML VIAL IV SCH (16:52)
[2020-03-01] MEDS: INSULIN GLARGINE 100 UNITS/ML 10 ML VIAL SQ SCH (20:41)
[2020-03-02] MEDS: CEFEPIME HCL 2 GM VIAL IVP SCH ×2 (03:49→15:23)
[2020-03-02 04:38] VITALS: BP 134/77
[2020-03-02 06:27] LABS: BASOPHILS % (AUTO) 0.2 % (0.0-5.0); LYMPHOCYTES % (AUTO) 3.1 % (21.0-51.0); MEAN CORPUSCULAR HGB CONC 32.7 g/dL (32.0-36.0); MEAN CORPUSCULAR VOLUME 91.9 fL (79-99); MONOCYTES % (AUTO) 1.9 % (3.0-13.0); NEUTROPHILS % (AUTO) 91.6 % (40.0-77.0); PLATELET COUNT (AUTO) 334 K/uL (130-400); RED BLOOD CELL COUNT(AUTO) 4.46 MIL/uL (4.00-5.50); RED CELL DISTRIBUTION WIDTH 13.2 % (11.0-15.5); WHITE BLOOD COUNT (AUTO) 12.1 K/uL (4.8-10.8)
[2020-03-02 07:08] LABS: CARBON DIOXIDE 28 mmol/L (21-32); CHLORIDE 98 mmol/L (101-111); GLOMERULAR FILTR. RATE CALC 63 mL/min (>60); LACTATE DEHYDROGENASE 426 U/L (81-234); POTASSIUM 4.8 mmol/L (3.5-5.1); SODIUM SERUM 131 mmol/L (136-145); UREA NITROGEN, BLOOD 35 mg/dL (7-18)
[2020-03-02 07:27] LABS: GLUCOSE,RANDOM 422 mg/dL (70-105)
[2020-03-02 08:00] VITALS: BP 126/86
[2020-03-02] MEDS: ASCORBIC ACID 500 MG TAB PO SCH (08:14)
[2020-03-02] MEDS: FAMOTIDINE 20MG TAB 20 MG TAB PO SCH ×2 (08:14→21:14)
[2020-03-02] MEDS: ACETYLCYSTEINE 600 MG CAPSULE PO SCH ×2 (08:14→21:14)
[2020-03-02] MEDS: METHYLPREDNISOLONE SOD SUCC 125MG/2ML VIAL IVP SCH ×3 (08:14→21:13)
[2020-03-02] MEDS: ZINC SULFATE 220 CAPSULE PO SCH (08:15)
[2020-03-02] MEDS: COLCHICINE 0.6 MG TABLET PO SCH ×2 (08:15→21:13)
[2020-03-02] MEDS: DOXYCYCLINE HYCLATE 100 MG TABLET PO SCH ×2 (08:15→21:13)
[2020-03-02] MEDS: ENOXAPARIN SODIUM 60 MG/0.6 ML SQ SCH (08:15)
[2020-03-02] MEDS: BENZONATATE 100 MG CAPSULE PO SCH ×3 (08:15→21:14)
[2020-03-02] MEDS: INSULIN HUMULIN R 100 UNIT/ML 3ML SQ SCH ×4 (08:18→21:16)
[2020-03-02] MEDS: INSULIN GLARGINE 100 UNITS/ML 10 ML VIAL SQ SCH ×2 (09:00→21:15)
[2020-03-02 09:03] LABS: HEMOGLOBIN A1C 8.8 % (4.0-6.0)
[2020-03-02 11:23] VITALS: BP 116/75
[2020-03-02] MEDS: FUROSEMIDE 10 MG/ML 2ML VIAL IV SCH (15:24)
[2020-03-02 16:00] VITALS: BP 120/77
[2020-03-02 20:00] VITALS: BP 113/61
[2020-03-02 23:49] VITALS: BP 138/64
[2020-03-03 03:33] VITALS: BP 133/72
[2020-03-03] MEDS: CEFEPIME HCL 2 GM VIAL IVP SCH ×2 (04:22→15:38)
[2020-03-03 04:49] LABS: BASOPHILS % (AUTO) 0.2 % (0.0-5.0); HEMATOCRIT 42.9 % (36-48); LYMPHOCYTES % (AUTO) 2.9 % (21.0-51.0); MEAN CORPUSCULAR HEMOGLOBIN 29.9 pg (27.0-33.0); MEAN CORPUSCULAR HGB CONC 33.3 g/dL (32.0-36.0); MEAN CORPUSCULAR VOLUME 89.6 fL (79-99); MONOCYTES % (AUTO) 2.3 % (3.0-13.0); NEUTROPHILS % (AUTO) 92.5 % (40.0-77.0); PLATELET COUNT (AUTO) 364 K/uL (130-400); RED BLOOD CELL COUNT(AUTO) 4.79 MIL/uL (4.00-5.50); RED CELL DISTRIBUTION WIDTH 13.2 % (11.0-15.5); WHITE BLOOD COUNT (AUTO) 13.2 K/uL (4.8-10.8)
[2020-03-03 05:08] LABS: ALANINE AMINOTRANSFERASE 81 U/L (12-78); ALBUMIN 2.7 g/dL (3.5-5.0); ASPARTATE AMINOTRANSFERASE 31 U/L (10-37); BILIRUBIN,TOTAL 0.8 mg/dL (0.2-1.0); CARBON DIOXIDE 27 mmol/L (21-32); CHLORIDE 94 mmol/L (101-111); CREATININE 0.9 mg/dL (0.5-1.5); GLOMERULAR FILTR. RATE CALC 71 mL/min (>60); GLUCOSE,RANDOM 350 mg/dL (70-105); LACTATE DEHYDROGENASE 351 U/L (81-234); POTASSIUM 4.7 mmol/L (3.5-5.1); SODIUM SERUM 130 mmol/L (136-145); TOTAL PROTEIN, SERUM 7.1 g/dL (6.0-8.3); UREA NITROGEN, BLOOD 44 mg/dL (7-18)
[2020-03-03 05:12] LABS: CRP QUANTITATIVE < 2.00 mg/L (0.00-9.0)
[2020-03-03] MEDS: INSULIN HUMULIN R 100 UNIT/ML 3ML SQ SCH ×4 (06:51→21:09)
[2020-03-03 08:00] VITALS: BP 104/62
[2020-03-03] MEDS: METHYLPREDNISOLONE SOD SUCC 125MG/2ML VIAL IVP SCH ×3 (09:47→21:06)
[2020-03-03] MEDS: ACETYLCYSTEINE 600 MG CAPSULE PO SCH ×2 (09:48→21:06)
[2020-03-03] MEDS: FAMOTIDINE 20MG TAB 20 MG TAB PO SCH ×2 (09:48→21:06)
[2020-03-03] MEDS: ASCORBIC ACID 500 MG TAB PO SCH (09:48)
[2020-03-03] MEDS: ZINC SULFATE 220 CAPSULE PO SCH (09:49)
[2020-03-03] MEDS: ENOXAPARIN SODIUM 60 MG/0.6 ML SQ SCH (09:49)
[2020-03-03] MEDS: DOXYCYCLINE HYCLATE 100 MG TABLET PO SCH ×2 (09:49→21:06)
[2020-03-03] MEDS: BENZONATATE 100 MG CAPSULE PO SCH ×3 (09:49→21:06)
[2020-03-03] MEDS: COLCHICINE 0.6 MG TABLET PO SCH ×2 (09:49→21:06)
[2020-03-03] MEDS: INSULIN GLARGINE 100 UNITS/ML 10 ML VIAL SQ SCH ×2 (10:02→21:09)
[2020-03-03 12:00] VITALS: BP 117/71
[2020-03-03] MEDS: FUROSEMIDE 10 MG/ML 2ML VIAL IV SCH (15:38)
[2020-03-03 17:01] VITALS: BP 110/67
[2020-03-03 19:35] VITALS: BP 118/63
[2020-03-03 23:59] VITALS: BP 114/68
[2020-03-04] MEDS: CEFEPIME HCL 2 GM VIAL IVP SCH ×2 (03:31→15:56)
[2020-03-04 03:40] VITALS: BP 118/64
[2020-03-04] MEDS: INSULIN HUMULIN R 100 UNIT/ML 3ML SQ SCH ×6 (05:40→20:29)
[2020-03-04 06:00] LABS: ALANINE AMINOTRANSFERASE 120 U/L (12-78); ALBUMIN 2.9 g/dL (3.5-5.0); ASPARTATE AMINOTRANSFERASE 32 U/L (10-37); BILIRUBIN,TOTAL 0.9 mg/dL (0.2-1.0); CARBON DIOXIDE 24 mmol/L (21-32); CHLORIDE 93 mmol/L (101-111); CREATININE 1.1 mg/dL (0.5-1.5); GLOMERULAR FILTR. RATE CALC 56 mL/min (>60); GLUCOSE,RANDOM 398 mg/dL (70-105); LACTATE DEHYDROGENASE 339 U/L (81-234); POTASSIUM 4.9 mmol/L (3.5-5.1); SODIUM SERUM 128 mmol/L (136-145); TOTAL PROTEIN, SERUM 7.5 g/dL (6.0-8.3); UREA NITROGEN, BLOOD 55 mg/dL (7-18)
[2020-03-04] MEDS ORDERED: INSULIN HUMULIN R 100 UNIT/ML 3ML SQ SCH (07:30)
[2020-03-04 07:38] LABS: BASOPHILS % (AUTO) 0.2 % (0.0-5.0); HEMATOCRIT 47.5 % (36-48); LYMPHOCYTES % (AUTO) 3.8 % (21.0-51.0); MEAN CORPUSCULAR HEMOGLOBIN 30.3 pg (27.0-33.0); MEAN CORPUSCULAR HGB CONC 33.3 g/dL (32.0-36.0); MONOCYTES % (AUTO) 3.8 % (3.0-13.0); NEUTROPHILS % (AUTO) 90.6 % (40.0-77.0); PLATELET COUNT (AUTO) 436 K/uL (130-400); RED BLOOD CELL COUNT(AUTO) 5.22 MIL/uL (4.00-5.50); RED CELL DISTRIBUTION WIDTH 13.4 % (11.0-15.5); WHITE BLOOD COUNT (AUTO) 12.8 K/uL (4.8-10.8)
[2020-03-04 07:58] LABS: CRP QUANTITATIVE < 2.00 mg/L (0.00-9.0)
[2020-03-04 08:41] VITALS: BP 131/82
[2020-03-04] MEDS: FAMOTIDINE 20MG TAB 20 MG TAB PO SCH ×2 (09:52→20:21)
[2020-03-04] MEDS: ACETYLCYSTEINE 600 MG CAPSULE PO SCH ×2 (09:52→20:21)
[2020-03-04] MEDS: ASCORBIC ACID 500 MG TAB PO SCH (09:52)
[2020-03-04] MEDS: BENZONATATE 100 MG CAPSULE PO SCH ×3 (09:52→20:28)
[2020-03-04] MEDS: ZINC SULFATE 220 CAPSULE PO SCH (09:53)
[2020-03-04] MEDS: METHYLPREDNISOLONE SOD SUCC 125MG/2ML VIAL IVP SCH ×3 (09:53→20:19)
[2020-03-04] MEDS: COLCHICINE 0.6 MG TABLET PO SCH ×2 (09:53→20:20)
[2020-03-04] MEDS: ENOXAPARIN SODIUM 60 MG/0.6 ML SQ SCH (09:53)
[2020-03-04 12:07] VITALS: BP 115/72
[2020-03-04] MEDS: FUROSEMIDE 10 MG/ML 2ML VIAL IV SCH (15:56)
[2020-03-04] MEDS ORDERED: INSULIN NPH 100 UNIT/ML 3ML SQ SCH (16:30)
[2020-03-04 16:57] VITALS: BP 123/75
[2020-03-04 19:45] VITALS: BP 166/66
[2020-03-04 23:54] VITALS: BP 103/60
[2020-03-05] MEDS: CEFEPIME HCL 2 GM VIAL IVP SCH ×2 (03:07→16:35)
[2020-03-05 03:45] VITALS: BP 134/76
--- NOTE | 2020-03-05 05:19 | NUR ---
UPDATE pATIENT RESPOSITIONED FROM PRONE TO SUPINE WITH C/O BURNING AND FEELING LIKE NEEDING TO "BURP". PATIENT DENIES CHEST PAIN. PATIENT STATES IT FEELS MORE "GASSY" AND MOVING. PATIENT ALSO STATES SHE IS HUNGRY. SNACKS PROVIDED.
[2020-03-05 06:18] LABS: BASOPHILS % (AUTO) 0.2 % (0.0-5.0); HEMATOCRIT 46.7 % (36-48); LYMPHOCYTES % (AUTO) 3.4 % (21.0-51.0); MONOCYTES % (AUTO) 3.5 % (3.0-13.0); NEUTROPHILS % (AUTO) 91.5 % (40.0-77.0); PLATELET COUNT (AUTO) 387 K/uL (130-400); RED BLOOD CELL COUNT(AUTO) 5.13 MIL/uL (4.00-5.50); RED CELL DISTRIBUTION WIDTH 13.5 % (11.0-15.5); WHITE BLOOD COUNT (AUTO) 14.6 K/uL (4.8-10.8)
[2020-03-05 06:42] LABS: BILIRUBIN,TOTAL 0.9 mg/dL (0.2-1.0); CREATININE 1.1 mg/dL (0.5-1.5); CRP QUANTITATIVE 0.2 mg/L (0.00-9.0); POTASSIUM 4.7 mmol/L (3.5-5.1); TOTAL PROTEIN, SERUM 7.3 g/dL (6.0-8.3)
[2020-03-05] MEDS ORDERED: INSULIN NPH 100 UNIT/ML 3ML SQ SCH (07:30)
[2020-03-05] MEDS: ASCORBIC ACID 500 MG TAB PO SCH (08:47)
[2020-03-05] MEDS: ZINC SULFATE 220 CAPSULE PO SCH (08:48)
[2020-03-05] MEDS: ACETYLCYSTEINE 600 MG CAPSULE PO SCH ×2 (08:48→19:37)
[2020-03-05] MEDS: COLCHICINE 0.6 MG TABLET PO SCH ×2 (08:48→19:37)
[2020-03-05] MEDS: METHYLPREDNISOLONE SOD SUCC 125MG/2ML VIAL IVP SCH ×3 (08:48→19:37)
[2020-03-05] MEDS: FAMOTIDINE 20MG TAB 20 MG TAB PO SCH ×2 (08:48→19:37)
[2020-03-05] MEDS: BENZONATATE 100 MG CAPSULE PO SCH ×3 (08:48→19:37)
[2020-03-05] MEDS: INSULIN NPH 100 UNIT/ML 3ML SQ SCH ×2 (08:52→16:38)
[2020-03-05] MEDS: INSULIN HUMULIN R 100 UNIT/ML 3ML SQ SCH ×7 (08:53→20:13)
[2020-03-05] MEDS: ENOXAPARIN SODIUM 60 MG/0.6 ML SQ SCH (08:54)
[2020-03-05 12:00] VITALS: BP 114/78
[2020-03-05 16:00] VITALS: BP 139/79
[2020-03-05] MEDS: FUROSEMIDE 10 MG/ML 2ML VIAL IV SCH (16:36)
[2020-03-05 19:35] VITALS: BP 137/83
--- NOTE | 2020-03-05 20:21 | NUR ---
POSITIONING PATIENT REPOSITIONED TO PRONE. PATIENT STATED WHEN SHE LAYS ON HER LEFT SIDE SHE EXPERIENCES HEART BURN.
[2020-03-05 23:28] VITALS: BP 123/79
[2020-03-06] MEDS: CEFEPIME HCL 2 GM VIAL IVP SCH ×2 (02:54→16:02)
[2020-03-06 03:45] VITALS: BP 123/79
[2020-03-06] MEDS: INSULIN HUMULIN R 100 UNIT/ML 3ML SQ SCH ×7 (05:59→21:08)
--- NOTE | 2020-03-06 06:24 | NUR ---
JUAREZ UNABLE TO OBTAIN FROM PHARMACY. Addendum: 03/06/20 at 0625 by LUPE RODRIGUEZ RN RN ENTERED ON WRONG PATIENT
--- NOTE | 2020-03-06 06:25 | NUR ---
END OF SHIFT PATIENTS VSS. PATIENT PRONED FROM 2020 TO ABOUT 0500. PATIENT ABLE TO SELF TURN. INCREASED URINE OUTPUT POST LASIX IV. PATIENT TOLERATING PO FLUIDS. WILL CONTINUE TO MONITOR.
[2020-03-06 07:30] VITALS: BP 123/75
[2020-03-06] MEDS: METHYLPREDNISOLONE SOD SUCC 125MG/2ML VIAL IVP SCH ×3 (09:02→20:03)
[2020-03-06] MEDS: ACETYLCYSTEINE 600 MG CAPSULE PO SCH ×2 (09:03→20:03)
[2020-03-06] MEDS: FAMOTIDINE 20MG TAB 20 MG TAB PO SCH ×2 (09:03→20:03)
[2020-03-06] MEDS: ASCORBIC ACID 500 MG TAB PO SCH (09:03)
[2020-03-06] MEDS: BENZONATATE 100 MG CAPSULE PO SCH ×3 (09:03→20:04)
[2020-03-06] MEDS: COLCHICINE 0.6 MG TABLET PO SCH ×2 (09:03→20:05)
[2020-03-06] MEDS: ZINC SULFATE 220 CAPSULE PO SCH (09:03)
[2020-03-06] MEDS: ENOXAPARIN SODIUM 60 MG/0.6 ML SQ SCH (09:04)
[2020-03-06] MEDS: INSULIN NPH 100 UNIT/ML 3ML SQ SCH ×2 (09:11→16:10)
[2020-03-06 11:22] VITALS: BP 111/76
[2020-03-06 15:57] VITALS: BP 99/75
[2020-03-06 20:23] VITALS: BP 139/97
[2020-03-06 23:41] VITALS: BP 113/73
[2020-03-07] MEDS: CEFEPIME HCL 2 GM VIAL IVP SCH ×2 (02:48→14:58)
[2020-03-07 03:46] VITALS: BP 137/75
[2020-03-07] MEDS: INSULIN NPH 100 UNIT/ML 3ML SQ SCH ×2 (06:17→17:00)
[2020-03-07] MEDS: INSULIN HUMULIN R 100 UNIT/ML 3ML SQ SCH ×8 (07:30→20:46)
[2020-03-07] MEDS: ZINC SULFATE 220 CAPSULE PO SCH (08:10)
[2020-03-07] MEDS: FAMOTIDINE 20MG TAB 20 MG TAB PO SCH ×2 (08:10→20:45)
[2020-03-07] MEDS: ASCORBIC ACID 500 MG TAB PO SCH (08:10)
[2020-03-07] MEDS: BENZONATATE 100 MG CAPSULE PO SCH ×3 (08:11→20:45)
[2020-03-07] MEDS: ACETYLCYSTEINE 600 MG CAPSULE PO SCH ×2 (08:11→20:45)
[2020-03-07] MEDS: FUROSEMIDE 20 MG TABLET PO SCH (08:11)
[2020-03-07] MEDS: COLCHICINE 0.6 MG TABLET PO SCH ×2 (08:11→20:45)
[2020-03-07] MEDS: METHYLPREDNISOLONE SOD SUCC 125MG/2ML VIAL IVP SCH ×3 (08:13→20:45)
[2020-03-07] MEDS: ENOXAPARIN SODIUM 60 MG/0.6 ML SQ SCH (08:57)
[2020-03-07 09:21] VITALS: BP 129/87
[2020-03-07 11:42] VITALS: BP 112/67
--- NOTE | 2020-03-07 11:44 | NUR ---
PROVIDER ROUNDS AJ, HAND WOOD SANDER. UPDATED PROVIDER THAT PATIENT BGS WAS 87 THIS AM; HELD HUMILIN R AND NPH. PATIENT HAS BEEN WEANING ON HIGH FLOW MAINTAIN OXYGEN SATURATIONS >92%. PATIENT PRONED MOST THE NIGHT. PATIENT NOTED TO HAVE PVCS OVERNIGHT.
[2020-03-07 16:00] VITALS: BP 114/71
[2020-03-07 20:33] VITALS: BP 120/79
[2020-03-08 04:01] VITALS: BP 98/67
[2020-03-08] MEDS: CEFEPIME HCL 2 GM VIAL IVP SCH ×2 (04:15→13:24)
[2020-03-08 05:19] LABS: BASOPHILS % (AUTO) 0.1 % (0.0-5.0); HEMATOCRIT 42.9 % (36-48); LYMPHOCYTES % (AUTO) 4.6 % (21.0-51.0); MEAN CORPUSCULAR HEMOGLOBIN 30.3 pg (27.0-33.0); MEAN CORPUSCULAR HGB CONC 33.6 g/dL (32.0-36.0); MEAN CORPUSCULAR VOLUME 90.1 fL (79-99); MONOCYTES % (AUTO) 4.9 % (3.0-13.0); NEUTROPHILS % (AUTO) 89.5 % (40.0-77.0); PLATELET COUNT (AUTO) 291 K/uL (130-400); RED BLOOD CELL COUNT(AUTO) 4.76 MIL/uL (4.00-5.50); RED CELL DISTRIBUTION WIDTH 13.7 % (11.0-15.5)
[2020-03-08] MEDS: INSULIN HUMULIN R 100 UNIT/ML 3ML SQ SCH ×7 (05:35→22:07)
[2020-03-08 05:56] LABS: ALANINE AMINOTRANSFERASE 108 U/L (12-78); ALBUMIN 2.8 g/dL (3.5-5.0); ASPARTATE AMINOTRANSFERASE 25 U/L (10-37); BILIRUBIN,TOTAL 0.9 mg/dL (0.2-1.0); CARBON DIOXIDE 24 mmol/L (21-32); CHLORIDE 101 mmol/L (101-111); CREATININE 0.9 mg/dL (0.5-1.5); GLOMERULAR FILTR. RATE CALC 71 mL/min (>60); GLUCOSE,RANDOM 119 mg/dL (70-105); LACTATE DEHYDROGENASE 174 U/L (81-234); POTASSIUM 4.3 mmol/L (3.5-5.1); SODIUM SERUM 133 mmol/L (136-145); TOTAL PROTEIN, SERUM 6.7 g/dL (6.0-8.3); UREA NITROGEN, BLOOD 53 mg/dL (7-18)
[2020-03-08 06:02] LABS: CRP QUANTITATIVE < 2.00 mg/L (0.00-9.0)
[2020-03-08] MEDS: INSULIN NPH 100 UNIT/ML 3ML SQ SCH ×2 (06:33→17:47)
[2020-03-08 07:48] VITALS: BP 133/66
[2020-03-08] MEDS: FUROSEMIDE 20 MG TABLET PO SCH (07:53)
[2020-03-08] MEDS: ASCORBIC ACID 500 MG TAB PO SCH (07:53)
[2020-03-08] MEDS: FAMOTIDINE 20MG TAB 20 MG TAB PO SCH ×2 (07:53→21:59)
[2020-03-08] MEDS: ZINC SULFATE 220 CAPSULE PO SCH (07:53)
[2020-03-08] MEDS: COLCHICINE 0.6 MG TABLET PO SCH ×2 (07:53→21:59)
[2020-03-08] MEDS: BENZONATATE 100 MG CAPSULE PO SCH ×3 (07:53→21:59)
[2020-03-08] MEDS: METHYLPREDNISOLONE SOD SUCC 125MG/2ML VIAL IVP SCH ×3 (07:53→21:59)
[2020-03-08] MEDS: ENOXAPARIN SODIUM 60 MG/0.6 ML SQ SCH (07:54)
[2020-03-08] MEDS: ACETYLCYSTEINE 600 MG CAPSULE PO SCH ×2 (08:41→21:59)
[2020-03-08 11:56] VITALS: BP 128/70
--- NOTE | 2020-03-08 14:30 | NUR ---
PROVIDER DR. TREJO AWARE THAT PATIENT HAS NOT URINATED ON THIS SHIFT. PATIENT CURRENTLY ON LASIX.
--- NOTE | 2020-03-08 15:23 | NUR ---
PROVIDER ROUNDS DR. TREJO AT BEDSIDE. RN EXPRESSED CONCERNS THAT PATIENT HAS BEEN MORE LETHARGIC WITH C/O FEELING "HEAVY", PATIENT DECLINED PT WHEN PT ATTEMPTED TO HAVE PATIENT STAND. PATIENT HIGH FLOW HAS BEEN WEANED; RT STATES GOAL OF TRANSITION TO NC PT CAN NOT TOLERATE NRB.
[2020-03-08 15:40] VITALS: BP 138/18
[2020-03-08 20:52] VITALS: BP 123/76
[2020-03-08 23:51] VITALS: BP 136/91
--- NOTE | 2020-03-08 23:55 | NUR ---
PROVIDER NOTIFICATION PATIENT NOTED TO HAVE PVCS ONSET 03/07 NOC. RN ASSUMED REPORT AT 2300 AND NOTED COUPLET PVCS CONFIRMED BY TELE ONSET AROUND 2300. PATIENT DOES NOT REPORT ANY CHEST PAIN OR DIZZINESS. VSS. PATIENT ON HIGH FLOW. K: 4.3. PER MD CONTINUE TO MONITOR, ORDERS RECEIVED FOR MAG LAB. CALL IF MAG <2.0.
--- NOTE | 2020-03-09 00:10 | NUR ---
PATIENT UPDATE INSTRUCTED PATIENT TO LAY SIDE TO SIDE. ASSESSED PATIENT FOR CHEST PAIN, DIZZINESS OR DISCOMFORT DUE TO PVCS. PATIENT NOTED TO HAVE SINGLE TO COUPLET PVCS WHEN LAYING ON SIDE. WILL CONTINUE TO MONITOR.
--- NOTE | 2020-03-09 00:45 | NUR ---
PATIENT ASSESSMENT PATIENT STATED SHE URINATED 2-3 TIMES TODAY. NO URINE OUTPUT NOTED FROM [id number]. WILL CONTINUE TO MONITOR.
[2020-03-09] MEDS: CEFEPIME HCL 2 GM VIAL IVP SCH ×2 (03:27→15:34)
[2020-03-09 04:27] VITALS: BP 105/77
[2020-03-09 05:41] LABS: BASOPHILS % (AUTO) 0.1 % (0.0-5.0); HEMATOCRIT 42.4 % (36-48); LYMPHOCYTES % (AUTO) 5.1 % (21.0-51.0); MEAN CORPUSCULAR HEMOGLOBIN 29.9 pg (27.0-33.0); MEAN CORPUSCULAR HGB CONC 32.8 g/dL (32.0-36.0); MEAN CORPUSCULAR VOLUME 91.2 fL (79-99); MONOCYTES % (AUTO) 6.6 % (3.0-13.0); NEUTROPHILS % (AUTO) 87.6 % (40.0-77.0); PLATELET COUNT (AUTO) 310 K/uL (130-400); RED BLOOD CELL COUNT(AUTO) 4.65 MIL/uL (4.00-5.50); WHITE BLOOD COUNT (AUTO) 11.4 K/uL (4.8-10.8)
[2020-03-09 06:04] LABS: ALANINE AMINOTRANSFERASE 113 U/L (12-78); ALBUMIN 2.9 g/dL (3.5-5.0); ASPARTATE AMINOTRANSFERASE 27 U/L (10-37); CARBON DIOXIDE 27 mmol/L (21-32); CHLORIDE 102 mmol/L (101-111); CREATININE 0.9 mg/dL (0.5-1.5); GLOMERULAR FILTR. RATE CALC 71 mL/min (>60); GLUCOSE,RANDOM 81 mg/dL (70-105); LACTATE DEHYDROGENASE 165 U/L (81-234); POTASSIUM 4.5 mmol/L (3.5-5.1); SODIUM SERUM 135 mmol/L (136-145); TOTAL PROTEIN, SERUM 6.6 g/dL (6.0-8.3); UREA NITROGEN, BLOOD 47 mg/dL (7-18)
[2020-03-09] MEDS: INSULIN HUMULIN R 100 UNIT/ML 3ML SQ SCH ×7 (06:15→19:47)
[2020-03-09 06:18] LABS: CRP QUANTITATIVE < 2.00 mg/L (0.00-9.0)
[2020-03-09] MEDS: INSULIN NPH 100 UNIT/ML 3ML SQ SCH ×2 (06:47→17:47)
[2020-03-09 08:01] VITALS: BP 106/76
[2020-03-09] MEDS: FAMOTIDINE 20MG TAB 20 MG TAB PO SCH ×2 (09:53→19:42)
[2020-03-09] MEDS: ENOXAPARIN SODIUM 60 MG/0.6 ML SQ SCH (09:53)
[2020-03-09] MEDS: ACETYLCYSTEINE 600 MG CAPSULE PO SCH ×2 (09:53→19:42)
[2020-03-09] MEDS: METHYLPREDNISOLONE SOD SUCC 125MG/2ML VIAL IVP SCH ×3 (09:53→19:42)
[2020-03-09] MEDS: ASCORBIC ACID 500 MG TAB PO SCH (09:53)
[2020-03-09] MEDS: FUROSEMIDE 20 MG TABLET PO SCH (09:53)
[2020-03-09] MEDS: COLCHICINE 0.6 MG TABLET PO SCH ×2 (09:53→19:42)
[2020-03-09] MEDS: BENZONATATE 100 MG CAPSULE PO SCH ×3 (09:54→19:42)
[2020-03-09] MEDS: ZINC SULFATE 220 CAPSULE PO SCH (09:54)
[2020-03-09 11:47] VITALS: BP 95/58
[2020-03-09 16:08] VITALS: BP 86/63
[2020-03-09 20:23] VITALS: BP 106/73
[2020-03-09] MEDS ORDERED: GUAIFENESIN-CODEINE 5 ML SYRUP PO PRN (22:30)
[2020-03-09 23:56] VITALS: BP 115/58
[2020-03-10] MEDS: CEFEPIME HCL 2 GM VIAL IVP SCH (03:35)
[2020-03-10 04:44] VITALS: BP 116/69
[2020-03-10] MEDS: INSULIN NPH 100 UNIT/ML 3ML SQ SCH ×2 (05:58→17:38)
[2020-03-10 06:28] LABS: BASOPHILS % (AUTO) 0.1 % (0.0-5.0); HEMATOCRIT 41.1 % (36-48); LYMPHOCYTES % (AUTO) 5.5 % (21.0-51.0); MEAN CORPUSCULAR HEMOGLOBIN 30.2 pg (27.0-33.0); MEAN CORPUSCULAR HGB CONC 33.3 g/dL (32.0-36.0); MEAN CORPUSCULAR VOLUME 90.7 fL (79-99); MONOCYTES % (AUTO) 3.6 % (3.0-13.0); NEUTROPHILS % (AUTO) 89.9 % (40.0-77.0); PLATELET COUNT (AUTO) 263 K/uL (130-400); RED BLOOD CELL COUNT(AUTO) 4.53 MIL/uL (4.00-5.50); WHITE BLOOD COUNT (AUTO) 10.5 K/uL (4.8-10.8)
[2020-03-10 06:59] LABS: ALANINE AMINOTRANSFERASE 158 U/L (12-78); ALBUMIN 2.9 g/dL (3.5-5.0); ASPARTATE AMINOTRANSFERASE 47 U/L (10-37); CARBON DIOXIDE 28 mmol/L (21-32); CHLORIDE 101 mmol/L (101-111); CREATININE 0.8 mg/dL (0.5-1.5); GLOMERULAR FILTR. RATE CALC 81 mL/min (>60); GLUCOSE,RANDOM 84 mg/dL (70-105); LACTATE DEHYDROGENASE 183 U/L (81-234); POTASSIUM 4.3 mmol/L (3.5-5.1); SODIUM SERUM 136 mmol/L (136-145); TOTAL PROTEIN, SERUM 6.5 g/dL (6.0-8.3); UREA NITROGEN, BLOOD 44 mg/dL (7-18)
[2020-03-10 07:00] VITALS: BP 129/74
[2020-03-10 07:00] LABS: CRP QUANTITATIVE < 2.00 mg/L (0.00-9.0)
[2020-03-10] MEDS: INSULIN HUMULIN R 100 UNIT/ML 3ML SQ SCH ×7 (07:30→21:02)
[2020-03-10] MEDS: METHYLPREDNISOLONE SOD SUCC 125MG/2ML VIAL IVP SCH ×3 (09:22→20:54)
[2020-03-10] MEDS: ENOXAPARIN SODIUM 60 MG/0.6 ML SQ SCH (09:23)
[2020-03-10] MEDS: ACETYLCYSTEINE 600 MG CAPSULE PO SCH ×2 (09:23→20:54)
[2020-03-10] MEDS: BENZONATATE 100 MG CAPSULE PO SCH ×3 (09:23→20:54)
[2020-03-10] MEDS: FAMOTIDINE 20MG TAB 20 MG TAB PO SCH ×2 (09:23→20:54)
[2020-03-10] MEDS: ASCORBIC ACID 500 MG TAB PO SCH (09:24)
[2020-03-10] MEDS: FUROSEMIDE 20 MG TABLET PO SCH (09:24)
[2020-03-10] MEDS: ZINC SULFATE 220 CAPSULE PO SCH (09:24)
[2020-03-10 11:00] VITALS: BP 119/60
[2020-03-10 16:00] VITALS: BP 109/69
[2020-03-10 20:00] VITALS: BP 114/48
[2020-03-10 23:58] VITALS: BP 111/54
[2020-03-11 04:00] VITALS: BP 98/66
[2020-03-11] MEDS: INSULIN HUMULIN R 100 UNIT/ML 3ML SQ SCH ×7 (05:49→20:48)
[2020-03-11] MEDS: ENOXAPARIN SODIUM 60 MG/0.6 ML SQ SCH (08:27)
[2020-03-11] MEDS: INSULIN NPH 100 UNIT/ML 3ML SQ SCH ×2 (08:29→17:41)
[2020-03-11 08:30] VITALS: BP 111/70
[2020-03-11] MEDS: METHYLPREDNISOLONE SOD SUCC 125MG/2ML VIAL IVP SCH ×3 (08:30→20:41)
[2020-03-11] MEDS: GUAIFENESIN-CODEINE 5 ML SYRUP PO PRN (08:30)
[2020-03-11] MEDS: BENZONATATE 100 MG CAPSULE PO SCH ×3 (08:30→20:43)
[2020-03-11] MEDS: ACETYLCYSTEINE 600 MG CAPSULE PO SCH ×2 (08:31→20:43)
[2020-03-11] MEDS: ZINC SULFATE 220 CAPSULE PO SCH (08:31)
[2020-03-11] MEDS: ASCORBIC ACID 500 MG TAB PO SCH (08:31)
[2020-03-11] MEDS: ACETAMINOPHEN 325 MG TAB PO PRN (08:32)
[2020-03-11] MEDS: FUROSEMIDE 20 MG TABLET PO SCH (08:32)
[2020-03-11] MEDS: FAMOTIDINE 20MG TAB 20 MG TAB PO SCH ×2 (09:30→20:43)
[2020-03-11 12:23] VITALS: BP 112/66
[2020-03-11 16:43] VITALS: BP 107/70
--- NOTE | 2020-03-11 16:43 | NUR ---
ADVISED THIS MORNING BY SONY THAT PT WAS ON ROOM AIR. POSSIBLE DISCHARGE? REVIEWED VS. CM AVAILABLE TO PROVIDE HOME O2 CONCENTRATOR IF MD RX'S AND QUALIFIES PER RT. WILL FOLLOW Addendum: 03/11/20 at 1645 by MARKELL LUGO RN CM Amended: Links added.
[2020-03-11] MEDS ORDERED: BENZ-39 PO (18:22)
[2020-03-11] MEDS ORDERED: BUDE180H IH (18:22)
[2020-03-11] MEDS ORDERED: ALBU8.5H8 IH (18:22)
[2020-03-11] MEDS ORDERED: LORA5TAB9 PO (18:23)
[2020-03-11] MEDS ORDERED: INSU100V3 IJ (18:30)
[2020-03-11 20:52] VITALS: BP 124/75
[2020-03-11] MEDS: LORATADINE/PSEUDOEPHED 5/120 MG 1 EACH TAB.SR.12H PO SCH (21:00)
[2020-03-11 23:48] VITALS: BP 113/56
[2020-03-12 04:55] VITALS: BP 113/63
[2020-03-12] MEDS: INSULIN HUMULIN R 100 UNIT/ML 3ML SQ SCH ×4 (06:02→16:44)
[2020-03-12] MEDS: INSULIN NPH 100 UNIT/ML 3ML SQ SCH ×2 (06:27→16:44)
[2020-03-12 08:00] VITALS: BP 103/65
[2020-03-12] MEDS: METHYLPREDNISOLONE SOD SUCC 125MG/2ML VIAL IVP SCH (09:35)
[2020-03-12] MEDS: ZINC SULFATE 220 CAPSULE PO SCH (09:35)
[2020-03-12] MEDS: ASCORBIC ACID 500 MG TAB PO SCH (09:36)
[2020-03-12] MEDS: ACETYLCYSTEINE 600 MG CAPSULE PO SCH ×2 (09:36→20:09)
[2020-03-12] MEDS: ENOXAPARIN SODIUM 60 MG/0.6 ML SQ SCH (09:36)
[2020-03-12] MEDS: FAMOTIDINE 20MG TAB 20 MG TAB PO SCH ×2 (09:36→20:09)
[2020-03-12] MEDS: BENZONATATE 100 MG CAPSULE PO SCH ×3 (09:36→20:09)
[2020-03-12] MEDS: FUROSEMIDE 20 MG TABLET PO SCH (09:36)
[2020-03-12 11:59] VITALS: BP 98/57
[2020-03-12 16:00] VITALS: BP 92/58
[2020-03-12 19:00] VITALS: BP 104/57
[2020-03-12] MEDS: LORATADINE/PSEUDOEPHED 5/120 MG 1 EACH TAB.SR.12H PO SCH (20:09)
[2020-03-12 23:00] VITALS: BP 106/71
[2020-03-13] MEDS ORDERED: OXYCODONE HCL 5 MG TAB ONE (02:45)
[2020-03-13] MEDS ORDERED: OXYCODONE HCL 5 MG TAB PO PRN (02:45)
--- NOTE | 2020-03-13 02:45 | NUR ---
Knee Pain Pt c/o bilateral knee pain 05/22. Pt unable to describe pain but reported it was worsening. No redness or swelling noted to both knees. Pt able to move legs slowly, checked bilateral calves for redness, tenderness and swelling, pt denies pain to calves. Notified regarding pt c/o pain, orders received for oxycodone 5mg PO Q6hrs PRN for pain. Pt given medication as ordered. Placed pt back on O2 2LNC due to sat 89%, placed heat pack on knees and repositioned pt. Will continue to monitor. Addendum: 03/13/20 at 0301 by AUDELIA SORTO RN RN Amended: Links added.
[2020-03-13 03:00] VITALS: BP 100/59
[2020-03-13 04:02] LABS: BASOPHILS % (AUTO) 0.1 % (0.0-5.0); EOSINOPHILS % (AUTO) 0.1 % (0.0-8.0); HEMATOCRIT 36.8 % (36-48); LYMPHOCYTES % (AUTO) 15.5 % (21.0-51.0); MEAN CORPUSCULAR HEMOGLOBIN 30.4 pg (27.0-33.0); MEAN CORPUSCULAR HGB CONC 33.7 g/dL (32.0-36.0); MEAN CORPUSCULAR VOLUME 90.2 fL (79-99); MONOCYTES % (AUTO) 4.5 % (3.0-13.0); NEUTROPHILS % (AUTO) 78.9 % (40.0-77.0); PLATELET COUNT (AUTO) 211 K/uL (130-400); RED BLOOD CELL COUNT(AUTO) 4.08 MIL/uL (4.00-5.50); RED CELL DISTRIBUTION WIDTH 13.8 % (11.0-15.5)
[2020-03-13 04:15] LABS: BILIRUBIN,TOTAL 0.9 mg/dL (0.2-1.0); CREATININE 0.9 mg/dL (0.5-1.5); POTASSIUM 3.9 mmol/L (3.5-5.1); TOTAL PROTEIN, SERUM 6.1 g/dL (6.0-8.3)
[2020-03-13] MEDS: METHYLPREDNISOLONE SOD SUCC 125MG/2ML VIAL IVP SCH ×3 (05:27→14:45)
[2020-03-13] MEDS: INSULIN NPH 100 UNIT/ML 3ML SQ SCH (06:32)
[2020-03-13] MEDS: INSULIN HUMULIN R 100 UNIT/ML 3ML SQ SCH ×4 (06:33→11:59)
[2020-03-13 08:00] VITALS: BP 105/53
[2020-03-13] MEDS ORDERED: INSULIN NPH 100 UNIT/ML 3ML SQ SCH (08:00)
[2020-03-13] MEDS: FAMOTIDINE 20MG TAB 20 MG TAB PO SCH (08:05)
[2020-03-13] MEDS: ACETYLCYSTEINE 600 MG CAPSULE PO SCH (08:05)
[2020-03-13] MEDS: ASCORBIC ACID 500 MG TAB PO SCH (08:05)
[2020-03-13] MEDS: FUROSEMIDE 20 MG TABLET PO SCH (08:06)
[2020-03-13] MEDS: ZINC SULFATE 220 CAPSULE PO SCH (08:06)
[2020-03-13] MEDS: ACETAMINOPHEN 325 MG TAB PO PRN (08:06)
[2020-03-13] MEDS: ENOXAPARIN SODIUM 60 MG/0.6 ML SQ SCH (08:07)
[2020-03-13] MEDS: BENZONATATE 100 MG CAPSULE PO SCH ×2 (08:07→14:45)
[2020-03-13] MEDS ORDERED: KETOROLAC TROMETHAMINE 30MG/ML IV SCH (09:02)
[2020-03-13 11:18] VITALS: BP 120/52
--- NOTE | 2020-03-13 14:00 | NUR ---
cm note spoke to pt primary nurse and charge nurse michael, and state that pt has portable and concentrator in pt room. will dc today.
--- NOTE | 2020-03-13 15:57 | NUR ---
DISCHARGE PATIENT GIVEN DISCHARGE INSTRUCTION ON FOLLOW UP APPOINTMENTS, NEW PRESCRIBED MEDICATIONS, OXYGEN AT HOME RECOMMENDATIONS, COVID, HOW TO PREVENT SPREAD OF COVID AT HOME. PATIENT VERBALIZED UNDERSTANDING OF ALL EDUCATION GIVEN VIA TEACH BACK. NO DISTRESS NOTED UPON DISCHARGE. PATIENT LEFT VIA WHEELCHAIR, O2 COMPRESSOR AND PORTABLE TANK TAKEN. PATIENT VERBALIZED UNDERSTANDING.
== END 2020-03-13 13:50 | disposition home or self-care (01) | DRG 177 ==
LOC: EDH 10:57 → EDHIP 10:58 → 4AH 23:27
PROVIDERS: ADMIT Family Medicine; ATTEND Family Medicine
PROC: 5A09357 Assistance with Respiratory Ventilation, Less than 24 Consecutive Hours, Continuous Positive Airway Pressure (ICD-10-PCS; 2020-02-20)
PROC: XW033E5 Introduction of Remdesivir Anti-infective into Peripheral Vein, Percutaneous Approach, New Technology Group 5 (ICD-10-PCS; 2020-02-21)
PROC: 5A09357 Assistance with Respiratory Ventilation, Less than 24 Consecutive Hours, Continuous Positive Airway Pressure (ICD-10-PCS; 2020-02-21)
PROC: XW13325 Transfusion of Convalescent Plasma (Nonautologous) into Peripheral Vein, Percutaneous Approach, New Technology Group 5 (ICD-10-PCS; principal; 2020-02-23)
DX: U07.1 COVID-19 (principal); J96.01 Acute respiratory failure with hypoxia; J12.89 Other viral pneumonia; E11.65 Type 2 diabetes mellitus with hyperglycemia; E66.01 Morbid (severe) obesity due to excess calories; T38.0X5A Adverse effect of glucocorticoids and synthetic analogues, initial encounter; Z68.35 Body mass index [BMI] 35.0-35.9, adult; Z83.3 Family history of diabetes mellitus; Z79.4 Long term (current) use of insulin
CPT/HCPCS: 36415; 36430; 36600; 71045; 80048; 80053; 81001; 82435; 82550; 82728; 82803; 82947; 82948; 83036; 83605; 83615; 83735; 83874; 84132; 84145; 84295; 84484; 85018; 85025; 85378; 85610; 85730; 86140; 86850; 86900; 86901; 86927; 87040; 87088; 87804; 87880; 93005; 93970; 94660; 94760; 97039; 99291; A4606; G0378; J0360; J0456; J0692; J0696; J1100; J1650; J1815; J1885; J1940; J2405; J2930; J3490; J7050; P9017; U0003

== ENCOUNTER → 2025-04-28 | Emergency (ER) | payer SELFPAY ==
[~2025-04-28] VITALS: Ht 160 cm; Wt 94.3 kg
[~2025-04-28] MED LIST: ALBU8.5H8 IH; BENZ-39 PO; BUDE180H IH; INSU100V3 IJ; LORA5TAB9 PO; NAPR-1194 PO
[2025-04-28 10:26] LABS: NUCLEATED RED BLOOD CELLS 0.0 % (0.0-0.19); PLATELET COUNT (AUTO) 270.0 K/uL (130-400); RED BLOOD CELL COUNT(AUTO) 4.47 MIL/uL (4.00-5.50); RED CELL DISTRIBUTION WIDTH 13.3 % (11.0-15.5); WHITE BLOOD COUNT (AUTO) 6.8 K/uL (4.8-10.8)
--- NOTE | 2025-04-28 10:31 | ERN ---
General Chief Complaint: Ankle Problem Stated Complaint: PAIN TO LEFT ANKLE Time Seen by MD: 09:54 History of Present Illness Initial Comments Patient is 54-year-old female who presented to ED with severe pain in left ankle. She says she had severe pain in left ankle, calcaneus region when she woke up this morning. She is known case of gout and is using allopurinol daily. She says she she never had pain this severe and came to ED for evaluation. She denies chest pain, shortness of breath, palpitation, nausea, fever, vomiting. Allergies: Coded Allergies: No Known Drug Allergies (Verified Allergy, Unknown, 02/20/20) Home Meds Active Scripts Insulin Regular, Human (Humulin R) 100 Unit/1 Ml Vial, 0 IJ TIDAC for 3 Days, VIAL Prov:NILTON JOHANSEN [facility] 03/11/20 Loratadine (Claritin) 5 Mg Tab.rapdis, 5 MG PO DAILY for 14 Days, #14 TAB Prov:NILTON JOHANSEN [facility] 03/11/20 Benzonatate (Tessalon Perles) 100 Mg Cap, 200 MG PO TID for 14 Days, #30 CAP Prov:NILTON JOHANSEN [facility] 03/11/20 Budesonide (Pulmicort Inhaler) 180 Mcg/Puff Puff, 180 MCG IH DAILY PRN for SHORTNESS OF BREATH for 3 Days, #1 INH Prov:NILTON JOHANSEN [facility] 03/11/20 Albuterol Sulfate (Proair Hfa) 8.5 Gm Hfa.aer.ad, 8.5 GM IH Q4HPRN PRN for SHORTNESS OF BREATH for 5 Days, #1 INH Prov:NILTON JOHANSEN [facility] 03/11/20 Past Medical History Past Medical History: Diabetes-Type II, High Cholesterol, Hypertension Past Surgical History: None Constitutional: (-) chills, (-) diaphoresis, (-) fever, (-) malaise, (-) weakness, (-) other documentation Respiratory: (-) cough, (-) orthopnea, (-) short of breath, (-) stridor, (-) wheezing, (-) other documentation Cardiovascular: (-) chest pain, (-) edema, (-) palpitations, (-) syncope, (-) dyspnea on exertion, (-) other documentation Musculoskeletal: (+) joint pain, (+) joint swelling, (+) gout; (-) Neck pain, (-) back pain, (-) Flank Pain, (-) muscle pain, (-) muscle stiffness, (-) other documentation Physical Exam General Appearance: (+) apparent distress; (-) no apparent distress, (-) mild distress, (-) moderate distress, (-) severe distress, (-) thin, (-) obese, (-) combative, (-) cachetic, (-) anxious, (-) other documentation Orientation: (+) alert, (+) oriented x 3; (-) disoriented, (-) other documentation Respiratory: (+) lungs clear; (-) chest non-tender, (-) well ventilated, (-) decreased breath sounds, (-) retractions, (-) abnormal breath sound, (-) crackles, (-) plerual rub, (-) rale s, (-) rhonchi, (-) stridor, (-) wheezing, (-) other documentation Extremities: (+) inflammation, (+) swelling, (+) other; (-) normal range of motion, (-) non-tender, (-) normal inspection, (-) no pedal edema, (-) no calf tenderness, (-) normal capillary refill, (-) pelvis stable, (-) calf tenderness, (-) pedal edema, (-) slow capillary refill Results Laboratory and Microbiology Lab and Micro Result Laboratory Tests Test 04/28/25 10:12 White Blood Count 6.8 K/uL (4.8-10.8) Red Blood Count 4.47 MIL/uL (4.00-5.50) Hemoglobin 13.5 g/dL (12.0-16.0) Hematocrit 41.3 % (36-48) Mean Corpuscular Volume 92.4 fL (79-99) Mean Corpuscular Hemoglobin 30.2 pg (27.0-33.0) Mean Corpuscular Hemoglobin Concent 32.7 g/dL (32.0-36.0) Red Cell Distribution Width 13.3 % (11.0-15.5) Platelet Count 270 K/uL (130-400) Mean Platelet Volume 10.5 fL (7.5-10.5) Nucleated Red Blood Cells 0.0 % (0.0-0.19) Sodium Level 138 mmol/L (136-145) Potassium Level 4.3 mmol/L (3.5-5.1) Chloride Level 103 mmol/L (101-111) Carbon Dioxide Level 28 mmol/L (21-32) Blood Urea Nitrogen 11 mg/dL (7-18) Creatinine 0.8 mg/dL (0.5-1.0) Glomerular Filtration Rate Calc 88 mL/min (>90) Random Glucose 88 mg/dL (70-105) Uric Acid 6.4 mg/dL (2.6-7.2) Total Calcium 8.7 mg/dL (8.5-10.1) EKG/XRAY/US/CT/MRI X-RAY Comment [address] [address] IMAGING REPORT Signed PATIENT: SUMMER CUNHA MR#: [id number] : 1970 SEX: F AGE: 54 LOCATION: [facility] ORDER 100 STATUS: [facility] REPORT#: [id number] SERVICE 1003 REASON: severe pain and sweeling ORDERING PHYSICIAN: ALEISHA FISCHER MD PROCEDURE: [id number] - ANKLE 2VWS LT EXAM: CR right ankle, 3 View. CLINICAL HISTORY: severe pain and sweeling COMPARISON: None provided. FINDINGS: BONES: No acute fracture or aggressive appearing osseous lesion. Dorsal calcaneus and plantar calcaneus spurs. JOINTS: The joint spaces appear within normal limits. No dislocation. No radiographic evidence of a joint effusion. SOFT TISSUES: The soft tissues are unremarkable. IMPRESSION: No acute osseous abnormality. Calcaneus spurring. /[place] DICTATED BY: MADDIE ROSAS Jr., MD DATE: 04/28/251308 ELECTRONICALLY SIGNED BY: MADDIE ROSAS Jr., MD DATE: 04/28/251308 [facility] MDM: Differential diagnosis: Heel spur, heel pain, Rationale: Tests considered and ordered secondary to shared decision making include: Previous outside records reviewed: Old ER visits. Risk of complication and/or morbidity or mortality of patient management: None Medications-Per medication reconciliation Need for hospitalization: Patient does not meet criteria for hospitalization. Need for emergency major/minor surgery: No Patient is a 54-year-old female coming in complaining of heel pain. X-ray disclose heel spurs. Patient was informed of x-ray findings. Patient will be discharged in stable condition with a diagnosis of heel spurs. Did advised her appropriate follow up with PCP for long-term management possible ortho follow up as well. He will support pad was applied. ED Course Orders Procedure Category Date Status Time Ankle 2vws Lt RAD 04/28/25 Resulted 10:03 Cbc Without LAB 04/28/25 Complete Differential 10:03 Uric Acid LAB 04/28/25 Complete 10:03 Basic Metabolic Panel LAB 04/28/25 Complete 10:03 Ketorolac PHA 04/28/25 Complete Tromethamine 30mg/Ml 10:30 Current Medications Medications (Trade) Dose Ordered Sig/Chiquita Route PRN Reason Start Time Stop Time Status Last Admin Dose Admin Ketorolac Tromethamine (toRADol) 30 mg ONCE ONCE IM 04/28/25 10:30 04/28/25 10:31 DC 04/28/25 11:37 Vital Signs Date Time Temp Pulse Resp B/P (MAP) Pulse Ox O2 Delivery O2 Flow Rate FiO2 04/28/25 11:32 97.9 64 16 167/101 98 Room Air* 0 21 04/28/25 09:53 98.1 66 16 149/88 97 Room Air HEART Score Response (Comments) Value History: Low suspicion (0) 0 Age: 45-65yrs (+1) 1 Total 1 DX & DISP Disposition: Discharge Departure Impression: Primary Impression: Heel spur Condition: Stable Scripts Naproxen (Naproxen) 500 Mg Tablet 1 TAB PO BID for pain for 7 Days, #14 TAB 0 Refills Prov: YAMILETH HERNADEZ MD 04/28/25 Additional Instructions: FOLLOW-UP WITH PRIMARY CARE PROVIDER IN 1 TO 2 DAYS. TAKE MEDICATIONS DIRECTED HERE IN THE EMERGENCY ROOM. OKAY TO CONTINUE HOME MEDICATIONS UNLESS OTHERWISE DISCUSSED DURING YOUR VISIT IN THE EMERGENCY ROOM TODAY. RETURN TO YOUR NEAREST EMERGENCY ROOM IF SYMPTOMS WORSEN OR IF THERE IS NO IMPROVEMENT. CALL 911 IF YOU NEED IMMEDIATE ASSISTANCE. TAKE TYLENOL [id number] NEEDED AND IF NO CONTRAINDICATIONS ARE PRESENT. INCREASE ORAL HYDRATION. A WOUND CULTURE OR URINE CULTURE WAS ORDERED HERE IN THE EMERGENCY ROOM DEPARTMENT PLEASE FOLLOW-UP WITH PRIMARY CARE PROVIDER AND ADVISE THEM TO GET REPORTS FROM OUR FACILITY. IF YOU HAD ANY NEL WRAP/SPLINTS THAT WERE APPLIED HERE, PLEASE DO NOT REMOVE THEM UNTIL YOU SEE YOUR PRIMARY CARE OR SPECIALTY. Referrals: Referrals: SELF,REFERRAL (PCP) ELISA MEADOWS MD, LUIS A MD Time of Disposition: 12:20 ALEISHA FISCHER MD Apr 28, 2025 10:31 YAMILETH HERNADEZ MD Apr 28, 2025 12:22
[2025-04-28 10:35] LABS: CREATININE 0.8 mg/dL (0.5-1.0); GLOMERULAR FILTR. RATE CALC 88.0 mL/min (>90); GLUCOSE,RANDOM 88.0 mg/dL (70-105); SODIUM SERUM 138.0 mmol/L (136-145); UREA NITROGEN, BLOOD 11.0 mg/dL (7-18)
[2025-04-28 11:32] VITALS: BP 167/101; PULSE 64; RESP 16; TEMP 97.8; O2SAT 98
--- NOTE | 2025-04-28 12:10 | HMCIMG ---
EXAM: CR right ankle, 3 View. CLINICAL HISTORY: severe pain and sweeling COMPARISON: None provided. FINDINGS: BONES: No acute fracture or aggressive appearing osseous lesion. Dorsal calcaneus and plantar calcaneus spurs. JOINTS: The joint spaces appear within normal limits. No dislocation. No radiographic evidence of a joint effusion. SOFT TISSUES: The soft tissues are unremarkable. IMPRESSION: No acute osseous abnormality. Calcaneus spurring. /[place]
== END ==
LOC: EDH 09:52
DX: M77.32 Calcaneal spur, left foot (principal); E11.9 Type 2 diabetes mellitus without complications; E78.00 Pure hypercholesterolemia, unspecified; I10 Essential (primary) hypertension; Z79.4 Long term (current) use of insulin; Z79.51 Long term (current) use of inhaled steroids; Z79.899 Other long term (current) drug therapy
CPT/HCPCS: 99284; 84550; 80048; 85027; 36415; 73600; 96372; J1885